=== PATIENT | female | born 1945 | race Caucasian/White ===

== ENCOUNTER 2017-08-27 17:22 | Inpatient (IN) | payer MEDICARE, OTHER ==
[2017-08-27 17:36] VITALS: BMI 21.9
[2017-08-27] MEDS ORDERED: Sodium Chloride 0.9% 1,000 ML IV ONE ×2 (17:56→19:10)
[2017-08-27 18:05] LABS: VENOUS BLOOD GAS BASE EXCESS 5.9 mmol/L (0.0-2.0); VENOUS BLOOD GAS PCO2 39 mmHg (40-60); VENOUS BLOOD PH 7.49 (7.32-7.43)
[2017-08-27 18:05] LABS: BASO # 0.1 K/uL (0.0-0.2); BASO % 0.6 % (0.0-2.0); EOS # 0.1 K/uL (0.0-0.7); EOS % 0.4 % (0.0-4.0); HEMATOCRIT 33.7 % (34.0-47.0); LYMPH % 9.7 % (20.0-40.0); MEAN CELL VOLUME 86.9 fL (81.0-99.0); MEAN CORPUSCULAR HEMOGLOBIN 28.8 pg (27.0-31.0); MEAN CORPUSCULAR HGB CONC 33.1 g/dL (33.0-37.0); MEAN PLATELET VOLUME 8.3 fL (7.2-11.7); MONO # 1.9 K/uL (0.0-0.8); MONO % 9.3 % (0.0-10.0); PLATELET COUNT 489 K/uL (130-400); RED CELL DISTRIBUTION WIDTH 12.5 % (11.5-14.5); WHITE BLOOD COUNT 20.5 K/uL (4.8-10.8)
[2017-08-27] MEDS ORDERED: Sodium Chloride 0.9% 1,000 ML ONE ×2 (18:07→19:33)
[2017-08-27 18:09] LABS: CHLORIDE 93 mmol/L (98-107)
[2017-08-27 18:10] LABS: POTASSIUM 3.8 mmol/L (3.6-5.2); SODIUM 128 mmol/L (132-148)
[2017-08-27 18:12] LABS: ALB/GLOB RATIO 1.1 (1.0-2.1); AST/SGOT 45 U/L (14-36); BLOOD UREA NITROGEN 8 mg/dL (7-17); CARBON DIOXIDE 25 mmol/L (22-30); GFR AFRICAN-AMERICAN > 60; TOTAL PROTEIN 6.8 g/dL (6.3-8.3)
[2017-08-27 18:13] LABS: ALKALINE PHOSPHATASE 95 U/L (38-126); ALT/SGPT 81 U/L (9-52); CALCIUM 8.8 mg/dl (8.6-10.4); GLUCOSE,RANDOM 165 mg/dL (65-105)
[2017-08-27 18:54] LABS: NEUTROPHIL 82 % (50-75); TOTAL CELLS COUNTED 100
--- NOTE | 2017-08-27 19:08 | RAD ---
PROCEDURE: CHEST RADIOGRAPH, 1 VIEW HISTORY: COUGH COMPARISON: None available. FINDINGS: LUNGS: Clear. PLEURA: No pneumothorax or pleural fluid seen. CARDIOVASCULAR: Normal. OSSEOUS STRUCTURES: Calcifications at the costochondral junctions of the right 5th and 6th ribs near the right lung base. VISUALIZED UPPER ABDOMEN: Normal. OTHER FINDINGS: None. IMPRESSION: No acute cardiopulmonary disease appreciated.
[2017-08-27 19:10] LABS: RBC URINE < 1 /hpf (0-3); TRANSITIONAL EPITHIAL < 1 /hpf (0-3); URINE BACTERIA FEW (<OCC); URINE BILIRUBIN NEGATIVE (NEGATIVE); URINE BLOOD NEGATIVE (NEGATIVE); URINE COLOR Straw (YELLOW); URINE GLUCOSE (UA) 1+ mg/dL (Normal); URINE KETONE NEGATIVE (NEGATIVE); URINE LEUKOCYTE ESTERASE NEG Leu/uL (Negative); URINE PROTEIN NEGATIVE (NEGATIVE); URINE UROBILINOGEN NORMAL mg/dL (0.2-1.0); WBC URINE 1 /hpf (0-5)
[2017-08-27] MEDS ORDERED: Moxifloxacin IV 400mg/250ml NS 400 MG/250 ML BAG IV ONE (19:12)
[2017-08-27] MEDS ORDERED: cefTRIAXone IV 1 gm in Dextros 50 ML IV ONE (19:18)
[2017-08-27] MEDS ORDERED: cefTRIAXone IV 1 gm in Dextros 50 ML IVPB ONE (19:25)
--- NOTE | 2017-08-27 19:27 | C.PDOC ---
History Of Present Illness 72 year old female is referred here by Dr. Acosta Massey, after he notices she looks lethergic, weakness, cough, and poor PO intake. Patient was diagnosed with URI and given azithromycin z pack with no improvement. Patient denies any headache, dizziness, nausea, vomit, or known sick contacts. Time Seen by Provider: 08/27/17 17:54 Chief Complaint (Nursing): Flu-like Symptoms History Per: Patient History/Exam Limitations: no limitations Onset/Duration Of Symptoms: Hrs Current Symptoms Are (Timing): Still Present Associated Symptoms: Cough, Myalgias, Nasal Congestion. denies: Fever, Chills, Sore Throat, Nausea, Vomiting, Diarrhea Recent travel outside of the [place]: No Additional History Per: Patient Past Medical History Reviewed: Historical Data, Nursing Documentation, Vital Signs Vital Signs: Last Vital Signs Temp 98.8 F 08/27/17 17:37 Pulse 131 H 08/27/17 17:37 Resp 16 08/27/17 17:37 BP 116/78 08/27/17 17:37 Pulse Ox 98 08/27/17 19:36 - Medical History PMH: HTN, Hyperlipidemia Surgical History: No Surg Hx Family History: States: Unknown Family Hx - Social History Hx Alcohol Use: No Hx Substance Use: No - Immunization History Hx Tetanus Toxoid Vaccination: No Hx Influenza Vaccination: Yes Hx Pneumococcal Vaccination: No Review Of Systems Constitutional: Negative for: Fever, Chills Eyes: Negative for: Vision Change ENT: Positive for: Nose Discharge Cardiovascular: Negative for: Chest Pain Respiratory: Positive for: Cough. Negative for: Shortness of Breath Gastrointestinal: Negative for: Nausea, Vomiting, Abdominal Pain Neurological: Positive for: Weakness. Negative for: Numbness Physical Exam - Physical Exam Appears: No Acute Distress, Other (Lethergic) Skin: Normal Color, Warm, Dry, Other (tenting skin) Head: Atraumatic, Normacephalic Nose: Normal, No Discharge Oral Mucosa: Moist Throat: Other (Oropharynx dry ) Neck: Normal ROM, Supple Chest: Symmetrical, No Tenderness Cardiovascular: Rhythm Regular, No Murmur Respiratory: Normal Breath Sounds, No Accessory Muscle Use, No Rales, No Rhonchi , No Wheezing Gastrointestinal/Abdominal: Soft, No Tenderness, No Guarding, No Rebound Extremity: Normal ROM, No Pedal Edema, No Deformity, No Swelling Neurological/Psych: Oriented x3, Normal Speech, Normal Cognition ED Course And Treatment - Laboratory Results Result Diagrams: 08/27/17 17:58 08/27/17 17:58 Lab Interpretation: Abnormal (ua neg.) ECG: Interpreted By Me ECG Rhythm: Sinus Tachycardia ECG Interpretation: Abnormal Rate From EC O2 Sat by Pulse Oximetry: 98 (On RA) Pulse Ox Interpretation: Normal - Radiology CXR: Interpreted by Me, Viewed By Me CXR Interpretation: Yes: No Acute Disease, Infiltrates (? LLL PNA) Nexus Criteria: Negative Progress Note: NS x 2 liters, Rocephin. Already on Azithro x 4 days and further azithro not indicated. Further, Avelox (for inst acquired PNA as pt has been in doctor's offices this week) is contraindicated due to warning of prolonged QT interval using Avelox and Azithromycin together. Medical Decision Making Medical Decision Making: Impression : 72 y/o female referred by Dr. Shane Plan: * EKG, Blood work, CXR, UA ordered * Avelox 5400 mg in 250 mL IV, IV fluids administered DM, dehydration, viral syndrome, ? underlying LLL PNA (faint on CXR) Disposition Doctor Will See Patient In The: Hospital Counseled Patient/Family Regarding: Studies Performed, Diagnosis - Disposition Disposition: HOSPITALIZED Disposition Time: 19:36 Condition: FAIR Forms: [facility] (Georgian) - Clinical Impression Clinical Impression: Dehydration, Upper respiratory infection - Scribe Statement The provider has reviewed the documentation as recorded by the Scribe Peter Irving All medical record entries made by the Scribe were at my direction and personally dictated by me. I have reviewed the chart and agree that the record accurately reflects my personal performance of the history, physical exam, medical decision making, and the department course for this patient. I have also personally directed, reviewed, and agree with the discharge instructions and disposition.
[2017-08-27] MEDS: (Novolog) Insulin Aspart, Recombinant 100 u/ml 10 ml vial SC SCH (22:09)
[2017-08-27] MEDS: Albuterol-Ipratrop 3 mg / 0.5 (3 ml) UD INH PRN (22:37)
[2017-08-27 23:26] VITALS: RESP 20
[2017-08-28] MEDS: (Novolog) Insulin Aspart, Recombinant 100 u/ml 10 ml vial SC SCH ×4 (07:45→21:34)
[2017-08-28] MEDS ORDERED: cefTRIAXone IV 1 gm in Dextros 50 ML IVPB SCH (10:00)
[2017-08-28] MEDS: Albuterol-Ipratrop 3 mg / 0.5 (3 ml) UD INH PRN (10:41)
[2017-08-28] MEDS: Vitamin B Complex/Vitamin C Tab PO SCH (10:46)
[2017-08-28] MEDS: Enoxaparin 40 mg Syringe SC SCH (10:47)
--- NOTE | 2017-08-28 15:34 | CP.PCM.PN ---
Subjective - Date & Time of Evaluation Date of Evaluation: 08/28/17 Time of Evaluation: 15:33 - Subjective Subjective: cough + Objective - Vital Signs/Intake and Output Vital Signs (last 24 hours): Temp Pulse Resp BP Pulse Ox 98.2 F 112 H 20 126/67 96 08/28/17 08:32 08/28/17 08:32 08/28/17 08:32 08/28/17 08:32 08/28/17 08:32 Intake and Output: 08/28/17 08/28/17 06:59 18:59 Intake Total 240 150 Balance 240 150 - Medications Medications: Current Medications Acetaminophen (Tylenol 325mg Tab) 650 mg PO Q6 PRN PRN Reason: Pain, moderate (4-7) Last Admin: 08/27/17 22:56 Dose: 650 mg Albuterol/Ipratropium (Duoneb 3 Mg/0.5 Mg (3 Ml) Ud) 3 ml INH RQ8 PRN PRN Reason: Shortness of Breath Last Admin: 08/28/17 10:41 Dose: 3 ml Enoxaparin Sodium (Lovenox) 40 mg SC DAILY [facility] Last Admin: 08/28/17 10:47 Dose: 40 mg Ceftriaxone Sodium 1 gm/ (Dextrose) 50 mls @ 100 mls/hr IVPB Q12H [facility] Last Admin: 08/28/17 07:12 Dose: 100 mls/hr Insulin Aspart (Novolog) 0 unit SC ACHS [facility] PRN Reason: Protocol Last Admin: 08/28/17 12:18 Dose: 2 unit Metformin HCl (Glucophage) 500 mg PO DAILY [facility] Last Admin: 08/28/17 10:46 Dose: 500 mg Pneumococcal Polyvalent Vaccine (Pneumovax 23 Vaccine) 0.5 ml IM .ONCE ONE Stop: 08/29/17 10:01 Rosuvastatin Calcium (Crestor) 5 mg PO HS [facility] Last Admin: 08/27/17 22:56 Dose: 5 mg Vitamin B Complex/Vitamin C (Berocca) 1 tab PO DAILY [facility] Last Admin: 08/28/17 10:46 Dose: 1 tab - Labs Labs: 08/27/17 17:58 08/27/17 17:58 - Constitutional Appears: Toxic, No Acute Distress - Eye Exam Eye Exam: Normal appearance - ENT Exam ENT Exam: Mucous Membranes Moist - Respiratory Exam Respiratory Exam: Clear to Ausculation Bilateral - Cardiovascular Exam Cardiovascular Exam: Tachycardia - GI/Abdominal Exam GI & Abdominal Exam: Soft - Extremities Exam Extremities Exam: absent: Pedal Edema - Neurological Exam Neurological Exam: Alert, Oriented x3 Assessment and Plan - Assessment and Plan (Free Text) Assessment: poss lt lower lobe pneumonia. will reche k labs.,pulmonary consult. diss with family
[2017-08-28] MEDS: Promethazine/Cod 6.25mg-10mg/5ml Syr UD PO PRN ×2 (16:20→21:30)
[2017-08-28 17:42] LABS: BASO % 0.3 % (0.0-2.0); EOS # 0.1 K/uL (0.0-0.7); EOS % 0.3 % (0.0-4.0); HEMATOCRIT 30.3 % (34.0-47.0); LYMPH # 1.8 K/uL (1.0-4.3); LYMPH % 9.8 % (20.0-40.0); MEAN CELL VOLUME 85.5 fL (81.0-99.0); MEAN CORPUSCULAR HEMOGLOBIN 28.7 pg (27.0-31.0); MEAN CORPUSCULAR HGB CONC 33.6 g/dL (33.0-37.0); MEAN PLATELET VOLUME 8.4 fL (7.2-11.7); MONO # 1.7 K/uL (0.0-0.8); MONO % 9.7 % (0.0-10.0); PLATELET COUNT 443 K/uL (130-400); RED CELL DISTRIBUTION WIDTH 12.6 % (11.5-14.5); WHITE BLOOD COUNT 17.9 K/uL (4.8-10.8)
[2017-08-28 17:52] LABS: CHLORIDE 95 mmol/L (98-107); POTASSIUM 3.9 mmol/L (3.6-5.2); SODIUM 126 mmol/L (132-148)
[2017-08-28 17:55] LABS: BLOOD UREA NITROGEN 6 mg/dL (7-17); CARBON DIOXIDE 22 mmol/L (22-30); GFR AFRICAN-AMERICAN > 60; GLUCOSE,RANDOM 205 mg/dL (65-105)
[2017-08-28 17:56] LABS: CALCIUM 7.8 mg/dl (8.6-10.4)
[2017-08-28 18:56] LABS: NEUTROPHIL 90 % (50-75); TOTAL CELLS COUNTED 100
[2017-08-28 18:59] LABS: LARGE PLATELETS PRESENT
--- NOTE | 2017-08-28 19:32 | CP.PCM.CON ---
History of Present Illness - History of Present Illness History of Present Illness: reason for consultation: cough 72 year old female With history of diabetes was referred by PMD, after he notices her looks lethergic, weakness, cough, and poor PO intake. Patient was diagnosed with URI and given azithromycin z pack with no improvement. Patient states she has been coughing for the past 2 weeks. Cough is mostly dry and both during the day and at night associated with runny nose, fevers chills and generalized body aches. Patient states cough is better now. Review of Systems - Review of Systems All systems: reviewed and no additional remarkable complaints except (cough, fever chills and generalized aches) Past Patient History - Past Medical History & Family History Past Medical History?: Yes - Past Social History Smoking Status: Never Smoked - CARDIAC Hx Hypertension: Yes - ENDOCRINE/METABOLIC Hx Diabetes Mellitus Type 2: Yes - MUSCULOSKELETAL/RHEUMATOLOGICAL Hx Falls: No - PSYCHIATRIC Hx Substance Use: No - SURGICAL HISTORY Hx Orthopedic Surgery: Yes - ANESTHESIA Hx Anesthesia: Yes Hx Anesthesia Reactions: No Meds Allergies/Adverse Reactions: Allergies Allergy/AdvReac Type Severity Reaction Status Date / Time No Known Allergies Allergy Verified 08/27/17 17:33 - Medications Medications: Current Medications Acetaminophen (Tylenol 325mg Tab) 650 mg PO Q6 PRN PRN Reason: Pain, moderate (4-7) Last Admin: 08/27/17 22:56 Dose: 650 mg Albuterol/Ipratropium (Duoneb 3 Mg/0.5 Mg (3 Ml) Ud) 3 ml INH RQ8 PRN PRN Reason: Shortness of Breath Last Admin: 08/28/17 10:41 Dose: 3 ml Enoxaparin Sodium (Lovenox) 40 mg SC DAILY [facility] Last Admin: 08/28/17 10:47 Dose: 40 mg Ceftriaxone Sodium 1 gm/ (Dextrose) 50 mls @ 100 mls/hr IVPB Q12H [facility] Last Admin: 08/28/17 18:21 Dose: 100 mls/hr Insulin Aspart (Novolog) 0 unit SC ACHS [facility] PRN Reason: Protocol Last Admin: 08/28/17 16:50 Dose: 2 unit Metformin HCl (Glucophage) 500 mg PO DAILY [facility] Last Admin: 08/28/17 10:46 Dose: 500 mg Pneumococcal Polyvalent Vaccine (Pneumovax 23 Vaccine) 0.5 ml IM .ONCE ONE Stop: 08/29/17 10:01 Promethazine HCl/Codeine (Phenergan/Codeine Oral Syrup) 5 ml PO Q4 PRN PRN Reason: Cough Stop: 08/31/17 15:40 Last Admin: 08/28/17 16:20 Dose: 5 ml Rosuvastatin Calcium (Crestor) 5 mg PO HS [facility] Last Admin: 08/27/17 22:56 Dose: 5 mg Fluticasone/Salmeterol (Advair Diskus 250/50) 1 puff INH RQ12 [facility] Vitamin B Complex/Vitamin C (Berocca) 1 tab PO DAILY [facility] Last Admin: 08/28/17 10:46 Dose: 1 tab Physical Exam - Head Exam Head Exam: ATRAUMATIC, NORMOCEPHALIC - Eye Exam Eye Exam: Normal appearance - ENT Exam ENT Exam: Mucous Membranes Moist - Neck Exam Neck exam: Positive for: Normal Inspection - Respiratory Exam Respiratory Exam: Rales - Cardiovascular Exam Cardiovascular Exam: REGULAR RHYTHM - GI/Abdominal Exam GI & Abdominal Exam: Normal Bowel Sounds - Extremities Exam Extremities exam: Positive for: normal inspection - Neurological Exam Neurological exam: Alert, Oriented x3 Results - Vital Signs Recent Vital Signs: Last Vital Signs Temp 99.1 F 08/28/17 15:00 Pulse 115 H 08/28/17 15:00 Resp 20 08/28/17 15:00 BP 126/70 08/28/17 15:00 Pulse Ox 95 08/28/17 15:00 - Labs Result Diagrams: 08/28/17 17:30 08/28/17 17:30 Labs: Laboratory Results - last 24 hr 08/27/17 08/27/17 08/28/17 19:32 21:58 07:17 WBC RBC Hgb Hct MCV MCH MCHC RDW Plt Count MPV Neut % (Auto) Lymph % (Auto) [place] % (Auto) Eos % (Auto) Baso % (Auto) Neut # Lymph # [place] # Eos # Baso # Neutrophils % (Manual) Lymphocytes % (Manual) Monocytes % (Manual) Platelet Estimate Large Platelets Sodium Potassium Chloride Carbon Dioxide Anion Gap BUN Creatinine Est GFR ( Amer) Est GFR (Non-Af Amer) POC Glucose (mg/dL) 162 H 203 H Random Glucose Calcium Influenza Typ A,B (EIA) Negative for flu a/b 08/28/17 08/28/1708/28/17 11:19 17:07 17:30 WBC 17.9 H RBC 3.54 L Hgb 10.2 L Hct 30.3 L MCV 85.5 MCH 28.7 MCHC 33.6 RDW 12.6 Plt Count 443 H MPV 8.4 Neut % (Auto) 79.9 H Lymph % (Auto) 9.8 L [place] % (Auto) 9.7 Eos % (Auto) 0.3 Baso % (Auto) 0.3 Neut # 14.3 H Lymph # 1.8 [place] # 1.7 H Eos # 0.1 Baso # 0.0 Neutrophils % (Manual) 90 H Lymphocytes % (Manual) 7 L Monocytes % (Manual) 3 Platelet Estimate Slightly increased H Large Platelets Present Sodium Potassium Chloride Carbon Dioxide Anion Gap BUN Creatinine Est GFR ( Amer) Est GFR (Non-Af Amer) POC Glucose (mg/dL) 238 H 239 H Random Glucose Calcium Influenza Typ A,B (EIA) 08/28/17 17:30 WBC RBC Hgb Hct MCV MCH MCHC RDW Plt Count MPV Neut % (Auto) Lymph % (Auto) [place] % (Auto) Eos % (Auto) Baso % (Auto) Neut # Lymph # [place] # Eos # Baso # Neutrophils % (Manual) Lymphocytes % (Manual) Monocytes % (Manual) Platelet Estimate Large Platelets Sodium 126 L Potassium 3.9 Chloride 95 L Carbon Dioxide 22 Anion Gap 13 BUN 6 L Creatinine 0.4 L Est GFR ( Amer) > 60 Est GFR (Non-Af Amer) > 60 POC Glucose (mg/dL) Random Glucose 205 H Calcium 7.8 L Influenza Typ A,B (EIA) Assessment & Plan (1) Cough Status: Acute Comment: cough for the past 2 weeks. elevated white count. On examination crackles in the bases. Chest x-ray showed no infiltrate. Clinical picture consistent with pneumonia. Continue antibiotics. Followup culture and sensit
[2017-08-29] MEDS: Albuterol-Ipratrop 3 mg / 0.5 (3 ml) UD INH PRN (07:45)
[2017-08-29] MEDS: Fluticasone-Salmeterol 250-50mcg Diskus INH SCH ×2 (08:00→19:32)
[2017-08-29] MEDS ORDERED: Pneumococcal 23-Valent Vaccine IM ONE (10:00)
[2017-08-29] MEDS: Enoxaparin 40 mg Syringe SC SCH (10:08)
[2017-08-29] MEDS: Vitamin B Complex/Vitamin C Tab PO SCH (10:54)
[2017-08-29] MEDS: (Novolog) Insulin Aspart, Recombinant 100 u/ml 10 ml vial SC SCH ×4 (10:54→21:49)
[2017-08-29] MEDS ORDERED: Sodium Chloride 0.9% 1,000 ML IV SCH (11:30)
--- NOTE | 2017-08-29 14:27 | CP.PCM.CON ---
History of Present Illness - History of Present Illness History of Present Illness: pt is seen and examined, full consult is dictated #[id number] 1. hyponatremia, most likley sec to hypotonic hypovolemic hyponatremia check urine lytes, osm s. osm, uric acid, tsh, cortisol c/w ivf ns at 60-70 ml/hr Past Patient History - Past Medical History & Family History Past Medical History?: Yes - Past Social History Smoking Status: Never Smoked - CARDIAC Hx Hypertension: Yes - ENDOCRINE/METABOLIC Hx Diabetes Mellitus Type 2: Yes - MUSCULOSKELETAL/RHEUMATOLOGICAL Hx Falls: No - PSYCHIATRIC Hx Substance Use: No - SURGICAL HISTORY Hx Orthopedic Surgery: Yes - ANESTHESIA Hx Anesthesia: Yes Hx Anesthesia Reactions: No Meds Allergies/Adverse Reactions: Allergies Allergy/AdvReac Type Severity Reaction Status Date / Time No Known Allergies Allergy Verified 08/27/17 17:33 - Medications Medications: Current Medications Acetaminophen (Tylenol 325mg Tab) 650 mg PO Q6 PRN PRN Reason: Pain, moderate (4-7) Last Admin: 08/29/17 00:05 Dose: 650 mg Albuterol/Ipratropium (Duoneb 3 Mg/0.5 Mg (3 Ml) Ud) 3 ml INH RQ8 PRN PRN Reason: Shortness of Breath Last Admin: 08/29/17 07:45 Dose: 3 ml Enoxaparin Sodium (Lovenox) 40 mg SC DAILY [facility] Last Admin: 08/29/17 10:08 Dose: 40 mg Ceftriaxone Sodium 1 gm/ (Dextrose) 100 mls @ 100 mls/hr IVPB Q12H [facility] Sodium Chloride (Sodium Chloride 0.9%) 1,000 mls @ 50 mls/hr IV .Q20H [facility] Last Admin: 08/29/17 12:00 Dose: 50 mls/hr Insulin Aspart (Novolog) 0 unit SC ACHS [facility] PRN Reason: Protocol Last Admin: 08/29/17 12:00 Dose: 2 unit Metformin HCl (Glucophage) 500 mg PO DAILY [facility] Last Admin: 08/29/17 10:53 Dose: 500 mg Promethazine HCl/Codeine (Phenergan/Codeine Oral Syrup) 5 ml PO Q4 PRN PRN Reason: Cough Stop: 08/31/17 15:40 Last Admin: 08/28/17 21:30 Dose: 5 ml Rosuvastatin Calcium (Crestor) 5 mg PO HS [facility] Last Admin: 08/28/17 21:30 Dose: 5 mg Fluticasone/Salmeterol (Advair Diskus 250/50) 1 puff INH RQ12 [facility] Last Admin: 08/29/17 08:00 Dose: 1 puff Vitamin B Complex/Vitamin C (Berocca) 1 tab PO DAILY [facility] Last Admin: 08/29/17 10:54 Dose: 1 tab Results - Vital Signs Recent Vital Signs: Last Vital Signs Temp 99.1 F 08/29/17 02:06 Pulse 101 H 08/29/17 00:00 Resp 20 08/29/17 00:00 BP 114/63 08/29/17 00:00 Pulse Ox 96 08/29/17 00:00 - Labs Result Diagrams: 08/28/17 17:30 08/28/17 17:30 Labs: Laboratory Results - last 24 hr 08/28/17 08/28/17 08/28/17 17:07 17:30 17:30 WBC 17.9 H RBC 3.54 L Hgb 10.2 L Hct 30.3 L MCV 85.5 MCH 28.7 MCHC 33.6 RDW 12.6 Plt Count 443 H MPV 8.4 Neut % (Auto) 79.9 H Lymph % (Auto) 9.8 L [place] % (Auto) 9.7 Eos % (Auto) 0.3 Baso % (Auto) 0.3 Neut # 14.3 H Lymph # 1.8 [place] # 1.7 H Eos # 0.1 Baso # 0.0 Neutrophils % (Manual) 90 H Lymphocytes % (Manual) 7 L Monocytes % (Manual) 3 Platelet Estimate Slightly increased H Large Platelets Present Sodium 126 L Potassium 3.9 Chloride 95 L Carbon Dioxide 22 Anion Gap 13 BUN 6 L Creatinine 0.4 L Est GFR ( Amer) > 60 Est GFR (Non-Af Amer) > 60 POC Glucose (mg/dL) 239 H Random Glucose 205 H Calcium 7.8 L 08/28/17 08/29/17 08/29/17 21:34 07:30 11:16 WBC RBC Hgb Hct MCV MCH MCHC RDW Plt Count MPV Neut % (Auto) Lymph % (Auto) [place] % (Auto) Eos % (Auto) Baso % (Auto) Neut # Lymph # [place] # Eos # Baso # Neutrophils % (Manual) Lymphocytes % (Manual) Monocytes % (Manual) Platelet Estimate Large Platelets Sodium Potassium Chloride Carbon Dioxide Anion Gap BUN Creatinine Est GFR ( Amer) Est GFR (Non-Af Amer) POC Glucose (mg/dL) 223 H 181 H 244 H Random Glucose Calcium
--- NOTE | 2017-08-29 14:30 | CP.PCM.CON ---
History of Present Illness - History of Present Illness History of Present Illness: 72 yo female is admitted with fever cough and congestion Has hx of DM II and was recently treated with ZMax w/o relief IV rx started empirically and CXR obtained failed to show infiltrates Pt had fevr leukocytosis on admission Review of Systems - Constitutional Constitutional: As Per HPI - EENT Eyes: absent: As Per HPI, Blind Spots, Blurred Vision, Change in Vision, Decreased Night Vision, Diplopia, Discharge, Dry Eye, Exophthalmos, Floaters, Irritation, Itchy Eyes, Loss of Peripheral Vision, Pain, Photophobia, Requires Corrective Lenses, Sees Flashes, Spots in Vision, Tunnel Vision, Other Visual Disturbances, Loss of Vision, Other Ears: absent: As Per HPI, Decreased Hearing, Ear Discharge, Ear Pain, Tinnitus, Abnormal Hearing, Disequilibrium, Dizziness, Other Nose/Mouth/Throat: absent: As Per HPI, Epistaxis, Nasal Congestion, Nasal Discharge, Nasal Obstruction, Nasal Trauma, Nose Pain, Post Nasal Drip, Sinus Pain, Sinus Pressure, Bleeding Gums, Change in Voice, Dental Pain, Dry Mouth, Dysphagia, Halitosis, Hoarsness, Lip Swelling, Mouth Lesions, Mouth Pain, Odynophagia, Sore Throat, Throat Swelling, Tongue Swelling, Facial Pain, Neck Pain, Neck Mass, Other - Breasts Breasts: absent: As Per HPI, Change in Shape, Mass, Pain, Nipple Discharge, Nipple Inversion, Skin Changes, Swelling, Other - Cardiovascular Cardiovascular: As Per HPI - Respiratory Respiratory: As Per HPI, Cough, Dyspnea. absent: Hemoptysis - Gastrointestinal Gastrointestinal: absent: As Per HPI, Abdominal Pain, Belching, Bloating, Change in Bowel Habits, Change in Stool Character, Coffee Ground Emesis, Constipation, Cramping, Diarrhea, Dyspepsia, Dysphagia, Early Satiety, Excessive Flatus, Fecal Incontinence, Heartburn, Hematemesis, Hematochezia, Loose Stools, Melena, Nausea, Odynophagia, Temesmus, Vomiting, Other - Genitourinary Genitourinary: absent: As Per HPI, Change in Urinary Stream, Difficulty Urinating, Dysuria, Flank Pain, Hematuria, Pyuria, Nocturia, Urinary Incontinence, Urinary Frequency, Urinary Hesitance, Urinary Urgency, Voiding Freq/Small Amts, Freq UTI, Hx Renal/Bladder Calculi, Hx /Renal Surgery, Bladder Distension, Other - Reproductive: Female Reproductive:Female: absent: As Per HPI, Amenorrhea, Amenorrhea/ Control, Currently Menstual, Cycle <21 Days, Cycle >35 Days, Cycle Variable, Menses 1-7 Days, Menses >/= 8 Days, Menses Variable, Cycle > 4 Weeks Between, No Menses for 6 Months, Heavy Menses, Light Menses, Normal Menses, Spotting Between Cycles , S/P Hysterectomy, Menopausal, Post Menopausal, Premenarche, Abnormal Vaginal Bleeding, Dysmenorrhea, Dyspareunia, Genital Lesions, Genital Pruritis, Pelvic Pain, Prolapse Symptoms, Sexual Dysfunction, Vaginal Discharge, Vaginal Dryness , Vaginal Odor, Vaginal Pruritis, Other - Menstruation Menstruation: absent: As Per HPI, Amenorrhea, Amenorrhea/ Control, Currently Menstual, Cycle <21 Days, Cycle >35 Days, Cycle Variable, Menses 1-7 Days, Menses >/= 8 Days, Menses Variable, Cycle > 4 Weeks Between, No Menses for 6 Months, Heavy Menses, Light Menses, Normal Menses, Spotting Between Cycles , S/P Hysterectomy, Menopausal, Post Menopausal, Premenarche, Abnormal Vaginal Bleeding, Dysmenorrhea, Other - Musculoskeletal Musculoskeletal: As Per HPI. absent: Abnormal Gait, Arthralgias, Atrophy, Back Pain, Deformity, Joint Swelling, Limited Range of Motion, Loss of Height, Muscle Cramps, Muscle Weakness, Myalgias, Neck Pain, Numbness, Radiating Pain into Limb, Stiffness, Tingling, Other - Integumentary Integumentary: absent: As Per HPI, Acne, Alopecia, Bleeding Lesions, Change in Hair, Change in Nails, Change in Pigmentation, Changing Lesions, Dry Skin, Erythema, Furuncle, Hirsutism, Lesions, New Lesions, Non-Healing Lesions, Photosensitivity, Pruritus, Rash, Skin Pain, Skin Ulcer, Sores, Striae, Swelling , Unusual Bruising, Wounds, Jaundice, Other - Neurological Neurological: absent: As Per HPI, Abnormal Gait, Abnormal Hearing, Abnormal Movements, Abnormal Speech, Behavioral Changes, Burning Sensations, Confusion, Convulsions, Disequilibrium, Dizziness, Numbness, Focal Weakness, Frequent Falls , Headaches, Lack of Coordination, Loss of Vision, Memory Loss, Paresthesias, Radicular Pain, Restless Legs, Sensory Deficit, Syncope, Tingling, Tremor, Vertigo, Weakness, Other Visual Disturbances, Other - Psychiatric Psychiatric: absent: As Per HPI, Abnormal Sleep Pattern, Anhedonia, Anxiety, Auditory Hallucinations, Behavioral Changes, Change in Appetite, Change in Libido, Confusion, Depression, Difficulty Concentrating, Hallucinations, Homicidal Ideation, Hopelessness, Irritability, Memory Loss, Mood Swings, Panic Attacks, Paranoia, Suicidal Ideation, Visual Hallucinations, Tactile Hallucinations, Other - Endocrine Endocrine: As Per HPI - Hematologic/Lymphatic Hematologic: absent: As Per HPI, Easy Bleeding, Easy Bruising, Lymphadenopathy, Other Past Patient History - Past Medical History & Family History Past Medical History?: Yes - Past Social History Smoking Status: Never Smoked - CARDIAC Hx Hypertension: Yes - ENDOCRINE/METABOLIC Hx Diabetes Mellitus Type 2: Yes - MUSCULOSKELETAL/RHEUMATOLOGICAL Hx Falls: No - PSYCHIATRIC Hx Substance Use: No - SURGICAL HISTORY Hx Orthopedic Surgery: Yes - ANESTHESIA Hx Anesthesia: Yes Hx Anesthesia Reactions: No Meds Allergies/Adverse Reactions: Allergies Allergy/AdvReac Type Severity Reaction Status Date / Time No Known Allergies Allergy Verified 08/27/17 17:33 - Medications Medications: Current Medications Acetaminophen (Tylenol 325mg Tab) 650 mg PO Q6 PRN PRN Reason: Pain, moderate (4-7) Last Admin: 08/29/17 00:05 Dose: 650 mg Albuterol/Ipratropium (Duoneb 3 Mg/0.5 Mg (3 Ml) Ud) 3 ml INH RQ8 PRN PRN Reason: Shortness of Breath Last Admin: 08/29/17 07:45 Dose: 3 ml Enoxaparin Sodium (Lovenox) 40 mg SC DAILY [facility] Last Admin: 08/29/17 10:08 Dose: 40 mg Ceftriaxone Sodium 1 gm/ (Dextrose) 100 mls @ 100 mls/hr IVPB Q12H [facility] Sodium Chloride (Sodium Chloride 0.9%) 1,000 mls @ 50 mls/hr IV .Q20H [facility] Last Admin: 08/29/17 12:00 Dose: 50 mls/hr Insulin Aspart (Novolog) 0 unit SC ACHS [facility] PRN Reason: Protocol Last Admin: 08/29/17 12:00 Dose: 2 unit Metformin HCl (Glucophage) 500 mg PO DAILY [facility] Last Admin: 08/29/17 10:53 Dose: 500 mg Promethazine HCl/Codeine (Phenergan/Codeine Oral Syrup) 5 ml PO Q4 PRN PRN Reason: Cough Stop: 08/31/17 15:40 Last Admin: 08/28/17 21:30 Dose: 5 ml Rosuvastatin Calcium (Crestor) 5 mg PO HS [facility] Last Admin: 08/28/17 21:30 Dose: 5 mg Fluticasone/Salmeterol (Advair Diskus 250/50) 1 puff INH RQ12 [facility] Last Admin: 08/29/17 08:00 Dose: 1 puff Vitamin B Complex/Vitamin C (Berocca) 1 tab PO DAILY [facility] Last Admin: 08/29/17 10:54 Dose: 1 tab Physical Exam - Constitutional Appears: Toxic, Cachectic, Chronically Ill - Head Exam Head Exam: ATRAUMATIC, NORMAL INSPECTION, NORMOCEPHALIC - Eye Exam Eye Exam: PERRL. absent: Scleral icterus - ENT Exam ENT Exam: Mucous Membranes Dry, Normal External Ear Exam, Normal Oropharynx - Neck Exam Neck exam: Negative for: Lymphadenopathy - Respiratory Exam Respiratory Exam: Decreased Breath Sounds, Prolonged Expiratory Phase, Rhonchi - Cardiovascular Exam Cardiovascular Exam: REGULAR RHYTHM, +S1, +S2 - GI/Abdominal Exam GI & Abdominal Exam: Diminished Bowel Sounds, Distended, Soft. absent: Guarding , Rigid, Tenderness - Rectal Exam Rectal Exam: Deferred - Exam Exam: NORMAL INSPECTION - Extremities Exam Extremities exam: Positive for: pedal pulses present. Negative for: calf tenderness, pedal edema, tenderness - Back Exam Back exam: absent: CVA tenderness (L), CVA tenderness (R), paraspinal tenderness - Neurological Exam Neurological exam: Alert, CN II-XII Intact, Oriented x3, Reflexes Normal - Psychiatric Exam Psychiatric exam: Depressed - Skin Skin Exam: Dry Results - Vital Signs Recent Vital Signs: Last Vital Signs Temp 99.1 F 08/29/17 02:06 Pulse 101 H 08/29/17 00:00 Resp 20 08/29/17 00:00 BP 114/63 08/29/17 00:00 Pulse Ox 96 08/29/17 00:00 - Labs Result Diagrams: 08/28/17 17:30 08/28/17 17:30 Labs: Laboratory Results - last 24 hr 08/28/17 08/28/17 08/28/17 17:07 17:30 17:30 WBC 17.9 H RBC 3.54 L Hgb 10.2 L Hct 30.3 L MCV 85.5 MCH 28.7 MCHC 33.6 RDW 12.6 Plt Count 443 H MPV 8.4 Neut % (Auto) 79.9 H Lymph % (Auto) 9.8 L Nye % (Auto) 9.7 Eos % (Auto) 0.3 Baso % (Auto) 0.3 Neut # 14.3 H Lymph # 1.8 Nye # 1.7 H Eos # 0.1 Baso # 0.0 Neutrophils % (Manual) 90 H Lymphocytes % (Manual) 7 L Monocytes % (Manual) 3 Platelet Estimate Slightly increased H Large Platelets Present Sodium 126 L Potassium 3.9 Chloride 95 L Carbon Dioxide 22 Anion Gap 13 BUN 6 L Creatinine 0.4 L Est GFR ( Amer) > 60 Est GFR (Non-Af Amer) > 60 POC Glucose (mg/dL) 239 H Random Glucose 205 H Calcium 7.8 L 08/28/17 08/29/17 08/29/17 21:34 07:30 11:16 WBC RBC Hgb Hct MCV MCH MCHC RDW Plt Count MPV Neut % (Auto) Lymph % (Auto) Nye % (Auto) Eos % (Auto) Baso % (Auto) Neut # Lymph # Nye # Eos # Baso # Neutrophils % (Manual) Lymphocytes % (Manual) Monocytes % (Manual) Platelet Estimate Large Platelets Sodium Potassium Chloride Carbon Dioxide Anion Gap BUN Creatinine Est GFR ( Amer) Est GFR (Non-Af Amer) POC Glucose (mg/dL) 223 H 181 H 244 H Random Glucose Calcium Assessment & Plan (1) Cough Status: Acute (2) Dehydration Status: Acute (3) Upper respiratory infection Status: Acute - Assessment and Plan (Free Text) Assessment: cont rx for CAP add atypical coverage Pulm follow up Dr Michaud consider CT Chest
--- NOTE | 2017-08-29 14:56 | RAD ---
HISTORY: pneumonia COMPARISON: Chest x-ray performed 08/27/17 TECHNIQUE: Chest PA and lateral FINDINGS: LUNGS: Mild biapical pleural thickening. No focal consolidation. Please note that chest x-ray has limited sensitivity for the detection of pulmonary masses. PLEURA: No significant pleural effusion identified. No definite pneumothorax . CARDIOVASCULAR: Heart size appears within normal limits. Dense atherosclerotic calcifications of the aorta. OSSEOUS STRUCTURES: Osseous demineralization. Degenerative changes. VISUALIZED UPPER ABDOMEN: Unremarkable. OTHER FINDINGS: None. IMPRESSION: Mild biapical pleural thickening. Dense atherosclerotic calcifications of the aortic knob.
[2017-08-29] MEDS: Sodium Chloride 0.9% 1,000 ML IV SCH (15:55)
[2017-08-29] MEDS: Promethazine/Cod 6.25mg-10mg/5ml Syr UD PO PRN (18:37)
[2017-08-29] MEDS: Azithromycin 500 MG in Sodium Chloride 0.9% 250 ML IVPB SCH (20:25)
[2017-08-30] MEDS: Promethazine/Cod 6.25mg-10mg/5ml Syr UD PO PRN ×3 (05:53→18:21)
[2017-08-30] MEDS: Sodium Chloride 0.9% 1,000 ML IV SCH ×3 (05:54→21:40)
[2017-08-30 06:33] LABS: BASO # 0.1 K/uL (0.0-0.2); BASO % 0.3 % (0.0-2.0); EOS # 0.1 K/uL (0.0-0.7); EOS % 0.6 % (0.0-4.0); HEMATOCRIT 29.4 % (34.0-47.0); LYMPH # 1.8 K/uL (1.0-4.3); LYMPH % 9.3 % (20.0-40.0); MEAN CORPUSCULAR HEMOGLOBIN 28.8 pg (27.0-31.0); MEAN CORPUSCULAR HGB CONC 33.5 g/dL (33.0-37.0); MONO # 1.8 K/uL (0.0-0.8); MONO % 9.4 % (0.0-10.0); PLATELET COUNT 440 K/uL (130-400); RED CELL DISTRIBUTION WIDTH 12.7 % (11.5-14.5); WHITE BLOOD COUNT 19.1 K/uL (4.8-10.8)
[2017-08-30 06:45] LABS: ALKALINE PHOSPHATASE 101 U/L (38-126); ALT/SGPT 83 U/L (9-52); AST/SGOT 53 U/L (14-36); BILIRUBIN,TOTAL 0.5 mg/dL (0.2-1.3); BLOOD UREA NITROGEN 5 mg/dL (7-17); CALCIUM 8.3 mg/dl (8.6-10.4); CARBON DIOXIDE 26 mmol/L (22-30); CHLORIDE 96 mmol/L (98-107); GFR AFRICAN-AMERICAN > 60; GLUCOSE,RANDOM 214 mg/dL (65-105); POTASSIUM 3.7 mmol/L (3.6-5.2); SODIUM 134 mmol/L (132-148); TOTAL PROTEIN 6.3 g/dL (6.3-8.3); URIC ACID 1.3 mg/dL (2.2-7.5)
[2017-08-30 06:50] LABS: ALB/GLOB RATIO 0.8 (1.0-2.1)
--- NOTE | 2017-08-30 07:11 | CON ---
RENAL CONSULTATION DATE: LOCATION: The patient is located in room 357, bed A. REQUESTED BY: Bryson Shane MD REASON FOR RENAL CONSULTATION: Hyponatremia, muscle pain for further evaluation. HISTORY OF PRESENT ILLNESS: Mrs. Darling is a 72-year-old elderly female with a past medical history significant for diabetes for about 2 to 3 years, hyperlipemia, who was admitted with a chief complaint of dry cough and sore throat for about two weeks. The patient was seen by PMD and given azithromycin without any significant improvement. The patient was admitted with persistent cough and severe muscle pains in both thigh regions and difficult to ambulate and decreased p.o. intake for the last 1 to 2 weeks. Also complaints of fever 106 prior to the hospital admission. Renal consult was requested for evaluation of the hyponatremia and muscle pains. The patient denies any chest pain, palpitation. Denies any nausea, vomiting. Denies any abdominal pain. No dysuria or frequency. No skin rash. No bleeding per rectum. No edema of the legs. PAST MEDICAL HISTORY: Significant for type 2 diabetes and hyperlipidemia. PAST SURGICAL HISTORY: Foot surgery more than two years ago. ALLERGIES: NO KNOWN DRUG ALLERGIES. SOCIAL HISTORY: No smoking, no alcohol, no drugs. PERSONAL HISTORY: She is and she has six children, lives with her family. The patient received flu vaccine three weeks ago, not sure about pneumococcal vaccine. REVIEW OF SYSTEMS: Significant for decreased p.o. intake for two weeks and feeling weak and dizzy and difficult to ambulate and muscle pains are diffuse. PHYSICAL EXAMINATION: VITAL SIGNS: As follows, blood pressure 136/72, pulse 100, respirations 20, temperature 98.6 and saturation 98%. Height is 5 feet and weight is 112 pounds. GENERAL: Mrs. Darling is a 72-year-old elderly female, thin built, not in distress. HEENT: Pupils normal and reactive to light and accommodation. Conjunctivae pink. Sclerae anicteric. Tongue is dry. Trachea is midline. LUNGS: Symmetrical on both side. Bilateral breath sounds present. Clear on auscultation. CARDIOVASCULAR: [place] at the fifth intercostal space, midclavicular line. S1 and S2 audible. No murmur or gallop. ABDOMEN: Normal in appearance, soft, tympanic. No guarding. No rigidity. No hepatosplenomegaly. CENTRAL NERVOUS SYSTEM: The patient is alert, awake, and oriented x3. Nonfocal on examination. Cranial nerves II through XII grossly intact. Sensory and motor system is within limits. EXTREMITIES: No cyanosis, no clubbing, no edema or tenderness on both thigh region, muscle tenderness present. CURRENT MEDICATIONS: Include as follows; Advair 1 puff q. 12 hours, azithromycin 500 mg q. 24 hours, Berocca one tablet daily, Rocephin 1 g q. 12 hours, DuoNeb inhaler, metformin 500 mg p.o. daily, Lovenox 40 mg subcu daily, Phenergan with codeine 5 mL q. 4 hours p.r.n., and IV fluids normal saline at 100 mL per hour and Fiorinal. LABORATORY DATA: Her Accu-Cheks 181, 244, 191, and 322 and CPK level is less than 20. Her white count as of 08/27/2017, WBC 20.5, hemoglobin 11.2, hematocrit is 33.7 and platelets 489. VBG; pH of 7.49, pCO2 of 39, pO2 of 22, bicarb 28, saturation 40%. Chem-7; sodium 128, potassium 3.8, chloride 93, CO2 of 25, BUN 8, creatinine 0.5, glucose 165, and calcium 8.8, total bili 1.0, AST 45, ALT 81, alkaline phosphatase 95, troponin 0.012, total protein 6.8, and albumin 3.5. Urinalysis, straw-colored, clear, pH 8, specific gravity of 1.003, and protein negative, glucose negative, ketones negative, blood negative, nitrites negative, bilirubin negative, leukocyte esterase is negative, wbc 1, rbc less than 1, bacteria is few. Influenza A and B antibody is negative. As of 08/28/2017, WBC 17.9, hemoglobin , hematocrit is 30.3, platelets 443, neutrophils 90, lymph 7, monos 3. Sodium 126, potassium 3.9,chloride 95, CO2 of 22, BUN 6, creatinine 0.4, glucose 239, and calcium is 7.8. Chest x-ray as of 08/27/2017, no acute cardiopulmonary disease appreciated. As of 08/28/2017, mild biapical pleural thickening dense, atherosclerotic calcification of the aortic knob. ASSESSMENT: In summary, Mrs. Darling is a 72-year-old elderly female with a history of type 2 diabetes, hyperlipidemia, who was admitted with chief complaints of fever 106 prior to the admission and severe body aches and dry cough and decreased p.o. intake for the last one to two weeks with low serum sodium. 1. Hyponatremia, most likely secondary to hypotonic hypovolemic hyponatremia, secondary to intravascular volume depletion. 2. Rule out upper respiratory tract infection, most likely viral etiology. Cannot rule out bacterial infection, less likely. PLAN: Check blood culture and consider sputum culture if possible and continue IV antibiotics Zithromax and Rocephin as per PMD and also continue IV fluids normal saline at 100 mL per hour. Repeat BMP in a.m. and analgesics p.r.n. for muscle pain and we will hold atorvastatin at this time and we will follow with you. Thank you for allowing me to participate in our patient's care. We will also check urine electrolytes, serum osmolality. We will check uric acid and serum cortisol level and TSH. Doubt syndrome of inappropriate antidiuretic hormone secretion. We will follow with you. Thank you for allowing me to participate in your patient's care. Samantha Alfaro MD
[2017-08-30 07:15] LABS: THYROID STIMULATING HORMONE 0.86 mIU/L (0.46-4.68)
[2017-08-30] MEDS: (Novolog) Insulin Aspart, Recombinant 100 u/ml 10 ml vial SC SCH ×4 (07:30→22:06)
[2017-08-30 08:23] LABS: EOSINOPHIL 1 % (0-4); NEUTROPHIL 79 % (50-75); TOTAL CELLS COUNTED 100
[2017-08-30 08:32] LABS: LEGIONELLA AG URINE NEGATIVE (NEGATIVE)
--- NOTE | 2017-08-30 09:49 | HP ---
HISTORY OF PRESENT ILLNESS: This is a 72-year-old female who was brought in with history of fever, chills, cough going on for the past few days. About two weeks ago, she had a flu shot. A week ago, she developed cough, was given some antibiotic without improvement. She got worse, came to the office, where she was found to be extremely dizzy and acutely sick, was referred to the emergency room and was admitted. She has temperature of 100.5. White count was 21,000. She has a history of hypertension and diabetes. MEDICATIONS AT HOME: Include Lipitor 10 mg one a day, metformin 500 mg twice a day, and Januvia 50 mg p.o. once a day. She is on 2 g sodium low-fat, low-cholesterol diet. REVIEW OF SYSTEMS: CONSTITUTIONAL: Generalized weakness is noted, extreme fatigue, fever for the past two days. Headaches are noted. EYES: No blurred vision. EARS: Normal. NECK: Supple. RESPIRATORY: Productive cough. No hemoptysis. CARDIAC: Denies any chest pain. No orthopnea, PND or leg edema. ABDOMEN: Negative for abdominal pain. GENITOURINARY: Negative for dysuria. Frequency is noted. MUSCULOSKELETAL: Severe leg pains are noted. NEUROLOGIC: No TIA's, no CVA's and no depression. ALLERGIES: DENIED. FAMILY HISTORY: Negative for premature coronary artery disease. PERSONAL HISTORY: Does not smoke. Does not drink. PHYSICAL EXAMINATION GENERAL: Shows elderly [place] female who appears acutely sick. VITAL SIGNS: She is 5 feet and weighs 106 pounds. Blood pressure is 130/70, heart rate of 120, respiratory rate of 20, and temperature of 100.6. HEENT: Head is normocephalic. Eyes, no pallor, no icterus. NECK: Supple. No lymphadenopathy. LUNGS: Show decreased air entry at the bases. HEART: PMI is not localized. S1 and S2, is tachycardic. No definite gallops or murmurs. ABDOMEN: Soft and nontender. EXTREMITIES: No cyanosis, clubbing, or edema. Distal pulses are intact. NEUROLOGIC: No focal sign. LABORATORY DATA: White count is elevated as mentioned. Chemistries are unremarkable. EKG is sinus tachycardia. IMAGING: Chest x-ray is not available. ASSESSMENT: A 72-year-old female with a history of possible pneumonitis, probably sepsis. PLAN: To admit, IV fluids, sodium was 128. ID consultation. Care of plan was explained to the patient's family, who is at the bedside. Bryson Shane MD
[2017-08-30 10:04] LABS: PROCALCITONIN SERUM 0.17 NG/ML (0.19-0.49)
[2017-08-30] MEDS: Fluticasone-Salmeterol 250-50mcg Diskus INH SCH (10:40)
[2017-08-30] MEDS: Vitamin B Complex/Vitamin C Tab PO SCH (11:44)
[2017-08-30] MEDS: Enoxaparin 40 mg Syringe SC SCH (11:44)
--- NOTE | 2017-08-30 11:52 | CP.PCM.PN ---
Subjective - Date & Time of Evaluation Date of Evaluation: 08/30/17 Time of Evaluation: 07:00 - Subjective Subjective: awake alert says shes feeling better No fever WBC 19 K repeat CXR neg Objective - Vital Signs/Intake and Output Vital Signs (last 24 hours): Temp Pulse Resp BP Pulse Ox 98.2 F 98 H 20 104/63 98 08/30/17 00:00 08/30/17 00:00 08/30/17 00:00 08/30/17 00:00 08/30/17 00:00 Intake and Output: 08/30/17 08/30/17 06:59 18:59 Intake Total 2150 Balance 2150 - Medications Medications: Current Medications Acetaminophen (Tylenol 325mg Tab) 650 mg PO Q6 PRN PRN Reason: Pain, moderate (4-7) Last Admin: 08/30/17 02:31 Dose: 650 mg Albuterol/Ipratropium (Duoneb 3 Mg/0.5 Mg (3 Ml) Ud) 3 ml INH RQ8 PRN PRN Reason: Shortness of Breath Last Admin: 08/29/17 07:45 Dose: 3 ml Enoxaparin Sodium (Lovenox) 40 mg SC DAILY [facility] Last Admin: 08/30/17 11:44 Dose: 40 mg Ceftriaxone Sodium 1 gm/ (Dextrose) 100 mls @ 100 mls/hr IVPB Q12H [facility] Last Admin: 08/30/17 06:00 Dose: 100 mls/hr Azithromycin 500 mg/ Sodium (Chloride) 250 mls @ 167 mls/hr IVPB Q24H [facility] Last Admin: 08/29/17 20:25 Dose: 167 mls/hr Sodium Chloride (Sodium Chloride 0.9%) 1,000 mls @ 100 mls/hr IV .Q10H [facility] Last Admin: 08/30/17 05:54 Dose: 100 mls/hr Insulin Aspart (Novolog) 0 unit SC ACHS [facility] PRN Reason: Protocol Last Admin: 08/29/17 21:49 Dose: Not Given Metformin HCl (Glucophage) 500 mg PO DAILY [facility] Last Admin: 08/30/17 11:43 Dose: 500 mg Promethazine HCl/Codeine (Phenergan/Codeine Oral Syrup) 5 ml PO Q4 PRN PRN Reason: Cough Stop: 08/31/17 15:40 Last Admin: 08/30/17 11:44 Dose: 5 ml Fluticasone/Salmeterol (Advair Diskus 250/50) 1 puff INH RQ12 [facility] Last Admin: 08/30/17 10:40 Dose: 1 puff Vitamin B Complex/Vitamin C (Berocca) 1 tab PO DAILY [facility] Last Admin: 08/30/17 11:44 Dose: 1 tab - Labs Labs: 08/30/17 06:24 08/30/17 06:24 - Constitutional Appears: Non-toxic, Chronically Ill - Head Exam Head Exam: NORMOCEPHALIC - Eye Exam Eye Exam: PERRL - ENT Exam ENT Exam: Mucous Membranes Dry - Neck Exam Neck Exam: absent: Lymphadenopathy - Respiratory Exam Respiratory Exam: Decreased Breath Sounds, Rhonchi - Cardiovascular Exam Cardiovascular Exam: REGULAR RHYTHM, +S1, +S2 - GI/Abdominal Exam GI & Abdominal Exam: Distended, Soft. absent: Tenderness - Rectal Exam Rectal Exam: Deferred - Exam Exam: NORMAL INSPECTION - Extremities Exam Extremities Exam: absent: Pedal Edema - Back Exam Back Exam: absent: CVA tenderness (L), CVA tenderness (R) - Neurological Exam Neurological Exam: Alert, Awake, CN II-XII Intact - Psychiatric Exam Psychiatric exam: Normal Mood - Skin Skin Exam: Dry, Intact Assessment and Plan (1) Cough Status: Acute (2) Dehydration Status: Acute (3) Upper respiratory infection Status: Acute - Assessment and Plan (Free Text) Assessment: persistent cough leukocytosis and anemia dehydration improved consider CT chest cont IV antibiotics pending cultures Consult Dr ghosh
--- NOTE | 2017-08-30 12:08 | CP.PCM.PN ---
Subjective - Date & Time of Evaluation Date of Evaluation: 08/30/17 Time of Evaluation: 12:07 - Subjective Subjective: pt is seen and examined, follow up consult is dictated #[id number] Objective - Vital Signs/Intake and Output Vital Signs (last 24 hours): Temp Pulse Resp BP Pulse Ox 98.2 F 98 H 20 104/63 98 08/30/17 00:00 08/30/17 00:00 08/30/17 00:00 08/30/17 00:00 08/30/17 00:00 Intake and Output: 08/30/17 08/30/17 06:59 18:59 Intake Total 2150 Balance 2150 - Medications Medications: Current Medications Acetaminophen (Tylenol 325mg Tab) 650 mg PO Q6 PRN PRN Reason: Pain, moderate (4-7) Last Admin: 08/30/17 02:31 Dose: 650 mg Albuterol/Ipratropium (Duoneb 3 Mg/0.5 Mg (3 Ml) Ud) 3 ml INH RQ8 PRN PRN Reason: Shortness of Breath Last Admin: 08/29/17 07:45 Dose: 3 ml Enoxaparin Sodium (Lovenox) 40 mg SC DAILY [facility] Last Admin: 08/30/17 11:44 Dose: 40 mg Ceftriaxone Sodium 1 gm/ (Dextrose) 100 mls @ 100 mls/hr IVPB Q12H [facility] Last Admin: 08/30/17 06:00 Dose: 100 mls/hr Azithromycin 500 mg/ Sodium (Chloride) 250 mls @ 167 mls/hr IVPB Q24H [facility] Last Admin: 08/29/17 20:25 Dose: 167 mls/hr Sodium Chloride (Sodium Chloride 0.9%) 1,000 mls @ 100 mls/hr IV .Q10H [facility] Last Admin: 08/30/17 05:54 Dose: 100 mls/hr Insulin Aspart (Novolog) 0 unit SC ACHS [facility] PRN Reason: Protocol Last Admin: 08/29/17 21:49 Dose: Not Given Metformin HCl (Glucophage) 500 mg PO DAILY [facility] Last Admin: 08/30/17 11:43 Dose: 500 mg Promethazine HCl/Codeine (Phenergan/Codeine Oral Syrup) 5 ml PO Q4 PRN PRN Reason: Cough Stop: 08/31/17 15:40 Last Admin: 08/30/17 11:44 Dose: 5 ml Fluticasone/Salmeterol (Advair Diskus 250/50) 1 puff INH RQ12 [facility] Last Admin: 08/30/17 10:40 Dose: 1 puff Vitamin B Complex/Vitamin C (Berocca) 1 tab PO DAILY [facility] Last Admin: 08/30/17 11:44 Dose: 1 tab - Labs Labs: 08/30/17 06:24 08/30/17 06:24
[2017-08-30] MEDS: Azithromycin 500 MG in Sodium Chloride 0.9% 250 ML IVPB SCH (14:00)
--- NOTE | 2017-08-30 16:09 | CP.PCM.PN ---
Subjective - Date & Time of Evaluation Date of Evaluation: 08/30/17 Time of Evaluation: 16:08 - Subjective Subjective: cough Objective - Vital Signs/Intake and Output Vital Signs (last 24 hours): Temp Pulse Resp BP Pulse Ox 98.2 F 98 H 20 104/63 98 08/30/17 00:00 08/30/17 00:00 08/30/17 00:00 08/30/17 00:00 08/30/17 00:00 Intake and Output: 08/30/17 08/30/17 06:59 18:59 Intake Total 2150 Balance 2150 - Medications Medications: Current Medications Acetaminophen (Tylenol 325mg Tab) 650 mg PO Q6 PRN PRN Reason: Pain, moderate (4-7) Last Admin: 08/30/17 02:31 Dose: 650 mg Albuterol/Ipratropium (Duoneb 3 Mg/0.5 Mg (3 Ml) Ud) 3 ml INH RQ8 PRN PRN Reason: Shortness of Breath Last Admin: 08/29/17 07:45 Dose: 3 ml Enoxaparin Sodium (Lovenox) 40 mg SC DAILY [facility] Last Admin: 08/30/17 11:44 Dose: 40 mg Ceftriaxone Sodium 1 gm/ (Dextrose) 100 mls @ 100 mls/hr IVPB Q12H [facility] Last Admin: 08/30/17 06:00 Dose: 100 mls/hr Azithromycin 500 mg/ Sodium (Chloride) 250 mls @ 167 mls/hr IVPB Q24H [facility] Last Admin: 08/30/17 14:00 Dose: 167 mls/hr Sodium Chloride (Sodium Chloride 0.9%) 1,000 mls @ 100 mls/hr IV .Q10H [facility] Last Admin: 08/30/17 12:16 Dose: Not Given Insulin Aspart (Novolog) 0 unit SC ACHS [facility] PRN Reason: Protocol Last Admin: 08/30/17 12:15 Dose: 2 unit Metformin HCl (Glucophage) 500 mg PO DAILY [facility] Last Admin: 08/30/17 11:43 Dose: 500 mg Promethazine HCl/Codeine (Phenergan/Codeine Oral Syrup) 5 ml PO Q4 PRN PRN Reason: Cough Stop: 08/31/17 15:40 Last Admin: 08/30/17 11:44 Dose: 5 ml Fluticasone/Salmeterol (Advair Diskus 250/50) 1 puff INH RQ12 [facility] Last Admin: 08/30/17 10:40 Dose: 1 puff Vitamin B Complex/Vitamin C (Berocca) 1 tab PO DAILY [facility] Last Admin: 08/30/17 11:44 Dose: 1 tab - Labs Labs: 08/30/17 06:24 08/30/17 06:24 - Constitutional Appears: No Acute Distress - Eye Exam Eye Exam: Normal appearance - ENT Exam ENT Exam: Mucous Membranes Moist - Respiratory Exam Respiratory Exam: Rhonchi - Cardiovascular Exam Cardiovascular Exam: REGULAR RHYTHM - GI/Abdominal Exam GI & Abdominal Exam: Soft - Extremities Exam Extremities Exam: absent: Pedal Edema - Neurological Exam Neurological Exam: Alert, Oriented x3 Assessment and Plan - Assessment and Plan (Free Text) Assessment: repeat x ray is ok. wbc still 19k, abnormal lfts noted. ct antibiotics. na is 134
[2017-08-30] MEDS ORDERED: Magnesium Hydroxide Susp 30 ml UD PO ONE ×3 (16:20→17:47)
--- NOTE | 2017-08-30 17:19 | CP.PCM.PN ---
Subjective - Date & Time of Evaluation Date of Evaluation: 08/30/17 Time of Evaluation: 09:00 - Subjective Subjective: patient seen and examined Still complaining of cough which is mostly dry Afebrile Repeat chest x-ray and CAT scan noted Objective - Vital Signs/Intake and Output Vital Signs (last 24 hours): Temp Pulse Resp BP Pulse Ox 98.0 F 122 H 20 126/73 96 08/30/17 15:00 08/30/17 15:00 08/30/17 15:00 08/30/17 15:00 08/30/17 15:00 Intake and Output: 08/30/17 08/30/17 06:59 18:59 Intake Total 2150 Balance 2150 - Medications Medications: Current Medications Acetaminophen (Tylenol 325mg Tab) 650 mg PO Q6 PRN PRN Reason: Pain, moderate (4-7) Last Admin: 08/30/17 02:31 Dose: 650 mg Albuterol/Ipratropium (Duoneb 3 Mg/0.5 Mg (3 Ml) Ud) 3 ml INH RQ8 PRN PRN Reason: Shortness of Breath Last Admin: 08/29/17 07:45 Dose: 3 ml Docusate Sodium (Colace) 100 mg PO BID [facility] Enoxaparin Sodium (Lovenox) 40 mg SC DAILY [facility] Last Admin: 08/30/17 11:44 Dose: 40 mg Ceftriaxone Sodium 1 gm/ (Dextrose) 100 mls @ 100 mls/hr IVPB Q12H [facility] Last Admin: 08/30/17 06:00 Dose: 100 mls/hr Azithromycin 500 mg/ Sodium (Chloride) 250 mls @ 167 mls/hr IVPB Q24H [facility] Last Admin: 08/30/17 14:00 Dose: 167 mls/hr Sodium Chloride (Sodium Chloride 0.9%) 1,000 mls @ 100 mls/hr IV .Q10H [facility] Last Admin: 08/30/17 12:16 Dose: Not Given Insulin Aspart (Novolog) 0 unit SC ACHS [facility] PRN Reason: Protocol Last Admin: 08/30/17 12:15 Dose: 2 unit Magnesium Hydroxide (Milk Of Magnesia) 30 ml PO ONCE ONE Stop: 08/31/17 10:01 Magnesium Hydroxide (Milk Of Magnesia) 30 ml PO ONCE ONE Stop: 08/30/17 17:12 Metformin HCl (Glucophage) 500 mg PO DAILY [facility] Last Admin: 08/30/17 11:43 Dose: 500 mg Methylprednisolone (Solu-Medrol) 40 mg IV Q8 [facility] Promethazine HCl/Codeine (Phenergan/Codeine Oral Syrup) 5 ml PO Q4 PRN PRN Reason: Cough Stop: 08/31/17 15:40 Last Admin: 08/30/17 11:44 Dose: 5 ml Vitamin B Complex/Vitamin C (Berocca) 1 tab PO DAILY [facility] Last Admin: 08/30/17 11:44 Dose: 1 tab - Labs Labs: 08/30/17 06:24 08/30/17 06:24 - Head Exam Head Exam: ATRAUMATIC, NORMOCEPHALIC - Eye Exam Eye Exam: Normal appearance - ENT Exam ENT Exam: Mucous Membranes Moist - Neck Exam Neck Exam: Normal Inspection - Respiratory Exam Respiratory Exam: Clear to Ausculation Bilateral - Cardiovascular Exam Cardiovascular Exam: REGULAR RHYTHM - GI/Abdominal Exam GI & Abdominal Exam: Soft, Normal Bowel Sounds - Extremities Exam Extremities Exam: Normal Inspection - Neurological Exam Neurological Exam: Alert, Oriented x3 Assessment and Plan (1) Cough Assessment & Plan: chest x-ray and CAT scan noted Patient still coughing Continue antibiotics IV steroids Discontinue Advair Continue nebulizer and antitussive CAT scan of the sinuses Status: Acute
[2017-08-30] MEDS: MethylPREDNISolone 40 mg Vial IV SCH (18:22)
--- NOTE | 2017-08-30 18:27 | US ---
HISTORY: abnormal lfts COMPARISON: None available. TECHNIQUE: Sonographic evaluation of the abdomen. FINDINGS: LIVER: Measures 15.1 cm in sagittal dimension. Echogenic liver may be seen in setting of hepatic parenchymal disease or fatty infiltration. No focal hepatic mass identified. The main portal vein appears patent with normal directional flow. No intrahepatic bile duct dilatation. GALLBLADDER: No gallstones. No gallbladder wall thickening. Negative sonographic Melchor's sign as assessed by the english language arts teacher. COMMON BILE DUCT: Measures 8 mm. PANCREAS: Not well visualized. RIGHT KIDNEY: Measures 9.7 x 4.6 x 4.9cm. No obstructing calculus or hydronephrosis identified. LEFT KIDNEY: Measures 9.7 x 5.8 x 5.5cm. No obstructing or hydronephrosis identified. SPLEEN: Measures approximately 8.3 cm. AORTA: Limited views appear unremarkable. IVC: Limited views appear unremarkable. OTHER FINDINGS: None. IMPRESSION: Echogenic liver may be seen in setting of hepatic parenchymal disease or fatty infiltration.
--- NOTE | 2017-08-30 19:00 | CT ---
CT chest without IV contrast Indication: Persistent cough Technique: Contiguous axial images were obtained through the chest without intravenous contrast enhancement. Sagittal and coronal reconstructions were generated and reviewed. This CT exam was performed using 1 or more of the falling dose reduction techniques: Automated exposure control, adjustment of the MAA and/or kV according to patient size, and/or use of iterative reconstruction technique. Radiation dose (DLP): 159.03 MGy-cm. Comparison: Chest x-ray performed earlier the same day Findings: Visualized portions of the inferior thyroid gland appear grossly unremarkable. The unenhanced mediastinal and hilar vascular structures appear grossly unremarkable. The heart appears within normal limits of size. Dense atherosclerotic calcifications of the aorta. No focal consolidation. No pleural effusion. No pneumothorax. No suspicious pulmonary nodules measuring greater than 5 mm. Small hiatal hernia/distal esophageal wall thickening. Limited visualization of the noncontrast upper abdomen appears grossly unremarkable. Mild degenerative changes of the spine. Impression: No focal consolidation. No pleural effusion. No pneumothorax.
[2017-08-31] MEDS: MethylPREDNISolone 40 mg Vial IV SCH ×3 (01:14→17:49)
--- NOTE | 2017-08-31 01:39 | PN ---
FOLLOWUP RENAL CONSULTATION DATE: LOCATION: The patient is located in room 357, bed A. REQUESTED BY: Dr. Bryson Shane. REASON FOR FOLLOWUP: Hyponatremia, for further evaluation. SUBJECTIVE: Mrs. Darling is a 72 years old elderly [place] female with a past medical history significant for hypertension, hyperlipidemia, who was admitted with the chief complaints of cough, runny nose and generalized body aches and fever and the patient was found to have low serum sodium and decreased p.o. intake. The patient was started on IV fluid and also started on IV antibiotic for possible pneumonia. The patient is feeling slightly better, but still complains severe cough, though less muscle pains today. No chest pain. No palpitation. No dysuria or frequency. PHYSICAL EXAMINATION GENERAL: Mrs. Darling is a 72 years old elderly female, moderately built, moderately nourished, not in any distress with persistent cough and runny nose. VITAL SIGNS: Her vital signs as follows, blood pressure 123/68, pulse 108, respirations 20, temperature 98.6, saturation 98%. Height 5 feet. Weight is 112 pounds. HEENT: Pupils normal and reactive to light and accommodation. Conjunctivae are pink. Sclerae are anicteric. Tongue is moist. Trachea is midline. LUNGS: Symmetric on both sides. Bilateral breath sounds present. No crackles. CARDIOVASCULAR SYSTEM: [place] at the fifth intercostal space of intermediate midclavicular line. S1 and S2 audible. No murmur or gallop. ABDOMEN: Normal in appearance, soft, tympanic. No guarding. No rigidity. No hepatosplenomegaly. CENTRAL NERVOUS SYSTEM: The patient is alert, awake, oriented x3. Nonfocal neuro examination. Cranial nerves II through XII grossly intact. Sensory and motor system is grossly within normal limits. EXTREMITIES: No cyanosis. No clubbing. No edema. LABORATORY DATA: Her laboratory data includes as follows: As of 08/30/2017, WBC 19.1, hemoglobin 9.8, hematocrit is 29.4, platelets 440 and neutrophils 79, lymph 8, monos 12, eosinophils 1. Sodium 134, potassium 3.7, chloride 96, CO2 of 26, BUN 5, creatinine 0.3 and glucose 214 and serum osmolality 288 and uric acid 1.3 and calcium is 8.3 and total bili 0.5. AST 53, ALT 83, alkaline phos is 101, total protein 6.3, albumin is 2.7 and urine osmolality is 294, urine sodium is 25 and urine potassium is 18.8 and urine for Legionella antigen is negative and sputum culture of Gram stain is normal penny. Ultrasound of the abdomen as of 08/30/2017: Right kidney 9.7 x 4.6 x 4.9 cm. No obstructing calculus, hydronephrosis identified. Left kidney 9.7 x 5.8 x 5.5 cm. No obstructing hydrocephalus identified. Spleen measures 8.3 cm. Impression: Echogenic liver, may be seen in the setting of hepatic parenchymal disease or fatty infiltration. CT of the chest as of 08/30/2017. Impression: No focal consolidation. No pleural effusion. No pneumothorax. MEDICATIONS: Her current medications include as follows; azithromycin 500 mg q. 24 hours and Berocca one tablet daily and Rocephin 1 g daily and Colace 100 mg p.o. b.i.d. and DuoNeb inhaler and metformin 500 mg p.o. daily and Lovenox 40 mg subcu daily, milk of magnesium 30 mL p.o. x1 and Phenergan with Codeine 5 mL q. 4 hours p.r.n. and IV fluids normal saline at 100 mL per hour and methylprednisolone 40 mg IV q. 8 hours and Tylenol 325 mg q. 6 hours. ASSESSMENT AND PLAN: In summary, Mrs. Darling is a 72 years old elderly [place] female with a history of hypertension, hyperlipidemia, diabetes, was admitted with body aches and fever, cough, runny nose, decreased p.o. intake and decreased serum sodium and severe pains in both lower extremities. 1. Hyponatremia, most likely secondary to intravascular volume depletion. 2. Upper respiratory infection, most likely viral syndrome. 3. Type 2 diabetes. 4. Hyperlipidemia. We will hold atorvastatin until muscle pains improve and continue normal saline at 100 mL per hour. Continue antibiotics, Zithromax and Rocephin as per Pulmonary and as per Dr. Bryson Shane. Repeat BMP in the a.m. We will follow with you. Thank you for allowing me to participate in your patient's care. Samantha Alfaro MD
[2017-08-31] MEDS: Promethazine/Cod 6.25mg-10mg/5ml Syr UD PO PRN ×2 (05:03→10:40)
[2017-08-31] MEDS: Sodium Chloride 0.9% 1,000 ML IV SCH ×3 (06:04→17:55)
[2017-08-31 07:36] LABS: BASO % 0.1 % (0.0-2.0); LYMPH % 6.6 % (20.0-40.0); MEAN CELL VOLUME 87.2 fL (81.0-99.0); MEAN CORPUSCULAR HEMOGLOBIN 28.8 pg (27.0-31.0); MEAN CORPUSCULAR HGB CONC 33.1 g/dL (33.0-37.0); MEAN PLATELET VOLUME 8.3 fL (7.2-11.7); MONO # 0.3 K/uL (0.0-0.8); MONO % 2.1 % (0.0-10.0); PLATELET COUNT 474 K/uL (130-400); WHITE BLOOD COUNT 14.9 K/uL (4.8-10.8)
[2017-08-31 07:50] LABS: CHLORIDE 96 mmol/L (98-107); POTASSIUM 4.4 mmol/L (3.6-5.2); SODIUM 131 mmol/L (132-148)
[2017-08-31 07:51] LABS: CHLORIDE URINE 41 mmol/L (32-290)
[2017-08-31 07:52] LABS: GFR AFRICAN-AMERICAN > 60
[2017-08-31 07:53] LABS: BLOOD UREA NITROGEN 11 mg/dL (7-17); CALCIUM 7.7 mg/dl (8.6-10.4); CARBON DIOXIDE 27 mmol/L (22-30); GLUCOSE,RANDOM 310 mg/dL (65-105)
[2017-08-31] MEDS: (Novolog) Insulin Aspart, Recombinant 100 u/ml 10 ml vial SC SCH ×4 (08:20→22:21)
[2017-08-31] MEDS ORDERED: Magnesium Hydroxide Susp 30 ml UD PO ONE (10:00)
[2017-08-31 10:03] LABS: NEUTROPHIL 92 % (50-75); TOTAL CELLS COUNTED 100
[2017-08-31] MEDS: Vitamin B Complex/Vitamin C Tab PO SCH (10:07)
[2017-08-31] MEDS: Enoxaparin 40 mg Syringe SC SCH (10:09)
--- NOTE | 2017-08-31 12:22 | CP.PCM.PN ---
Subjective - Date & Time of Evaluation Date of Evaluation: 08/31/17 Time of Evaluation: 08:00 - Subjective Subjective: events noted for CT sinuses Chest clear Objective - Vital Signs/Intake and Output Vital Signs (last 24 hours): Temp Pulse Resp BP Pulse Ox 98.3 F 90 20 129/74 95 08/31/17 08:45 08/31/17 08:45 08/31/17 08:45 08/31/17 08:45 08/31/17 08:45 Intake and Output: 08/31/17 08/31/17 06:59 18:59 Intake Total 1040 Balance 1040 - Medications Medications: Current Medications Acetaminophen (Tylenol 325mg Tab) 650 mg PO Q6 PRN PRN Reason: Pain, moderate (4-7) Last Admin: 08/30/17 02:31 Dose: 650 mg Albuterol/Ipratropium (Duoneb 3 Mg/0.5 Mg (3 Ml) Ud) 3 ml INH RQ8 PRN PRN Reason: Shortness of Breath Last Admin: 08/29/17 07:45 Dose: 3 ml Docusate Sodium (Colace) 100 mg PO BID [facility] Last Admin: 08/31/17 10:07 Dose: 100 mg Enoxaparin Sodium (Lovenox) 40 mg SC DAILY [facility] Last Admin: 08/31/17 10:09 Dose: 40 mg Ceftriaxone Sodium 1 gm/ (Dextrose) 100 mls @ 100 mls/hr IVPB Q12H [facility] Last Admin: 08/31/17 06:03 Dose: 100 mls/hr Azithromycin 500 mg/ Sodium (Chloride) 250 mls @ 167 mls/hr IVPB Q24H [facility] Last Admin: 08/30/17 14:00 Dose: 167 mls/hr Sodium Chloride (Sodium Chloride 0.9%) 1,000 mls @ 100 mls/hr IV .Q10H [facility] Last Admin: 08/31/17 07:36 Dose: Not Given Insulin Aspart (Novolog) 0 unit SC ACHS [facility] PRN Reason: Protocol Last Admin: 08/31/17 08:20 Dose: 4 unit Metformin HCl (Glucophage) 500 mg PO DAILY [facility] Last Admin: 08/31/17 10:08 Dose: 500 mg Methylprednisolone (Solu-Medrol) 40 mg IV Q8H [facility] Last Admin: 08/31/17 10:40 Dose: 40 mg Promethazine HCl/Codeine (Phenergan/Codeine Oral Syrup) 5 ml PO Q4 PRN PRN Reason: Cough Stop: 08/31/17 15:40 Last Admin: 08/31/17 10:40 Dose: 5 ml Vitamin B Complex/Vitamin C (Berocca) 1 tab PO DAILY [facility] Last Admin: 08/31/17 10:07 Dose: 1 tab - Labs Labs: 08/31/17 07:18 08/31/17 07:18 - Constitutional Appears: Non-toxic, Chronically Ill - Head Exam Head Exam: NORMOCEPHALIC - Eye Exam Eye Exam: PERRL - ENT Exam ENT Exam: Mucous Membranes Dry - Neck Exam Neck Exam: absent: Lymphadenopathy - Respiratory Exam Respiratory Exam: Decreased Breath Sounds, Clear to Ausculation Bilateral Assessment and Plan (1) Cough Status: Acute (2) Dehydration Status: Acute (3) Upper respiratory infection Status: Acute
--- NOTE | 2017-08-31 12:28 | CP.PCM.PN ---
Subjective - Date & Time of Evaluation Date of Evaluation: 08/31/17 Time of Evaluation: 12:27 - Subjective Subjective: cough is better.ct is neg.verbal Objective - Vital Signs/Intake and Output Vital Signs (last 24 hours): Temp Pulse Resp BP Pulse Ox 98.3 F 90 20 129/74 95 08/31/17 08:45 08/31/17 08:45 08/31/17 08:45 08/31/17 08:45 08/31/17 08:45 Intake and Output: 08/31/17 08/31/17 06:59 18:59 Intake Total 1040 Balance 1040 - Medications Medications: Current Medications Acetaminophen (Tylenol 325mg Tab) 650 mg PO Q6 PRN PRN Reason: Pain, moderate (4-7) Last Admin: 08/30/17 02:31 Dose: 650 mg Albuterol/Ipratropium (Duoneb 3 Mg/0.5 Mg (3 Ml) Ud) 3 ml INH RQ8 PRN PRN Reason: Shortness of Breath Last Admin: 08/29/17 07:45 Dose: 3 ml Docusate Sodium (Colace) 100 mg PO BID [facility] Last Admin: 08/31/17 10:07 Dose: 100 mg Enoxaparin Sodium (Lovenox) 40 mg SC DAILY [facility] Last Admin: 08/31/17 10:09 Dose: 40 mg Ceftriaxone Sodium 1 gm/ (Dextrose) 100 mls @ 100 mls/hr IVPB Q12H [facility] Last Admin: 08/31/17 06:03 Dose: 100 mls/hr Azithromycin 500 mg/ Sodium (Chloride) 250 mls @ 167 mls/hr IVPB Q24H [facility] Last Admin: 08/30/17 14:00 Dose: 167 mls/hr Sodium Chloride (Sodium Chloride 0.9%) 1,000 mls @ 100 mls/hr IV .Q10H [facility] Last Admin: 08/31/17 07:36 Dose: Not Given Insulin Aspart (Novolog) 0 unit SC ACHS [facility] PRN Reason: Protocol Last Admin: 08/31/17 12:25 Dose: 4 unit Metformin HCl (Glucophage) 500 mg PO DAILY [facility] Last Admin: 08/31/17 10:08 Dose: 500 mg Methylprednisolone (Solu-Medrol) 40 mg IV Q8H [facility] Last Admin: 08/31/17 10:40 Dose: 40 mg Promethazine HCl/Codeine (Phenergan/Codeine Oral Syrup) 5 ml PO Q4 PRN PRN Reason: Cough Stop: 08/31/17 15:40 Last Admin: 08/31/17 10:40 Dose: 5 ml Vitamin B Complex/Vitamin C (Berocca) 1 tab PO DAILY [facility] Last Admin: 08/31/17 10:07 Dose: 1 tab - Labs Labs: 08/31/17 07:18 08/31/17 07:18 - Constitutional Appears: No Acute Distress - Head Exam Head Exam: NORMOCEPHALIC - ENT Exam ENT Exam: Mucous Membranes Moist - Respiratory Exam Respiratory Exam: Clear to Ausculation Bilateral - Cardiovascular Exam Cardiovascular Exam: REGULAR RHYTHM - GI/Abdominal Exam GI & Abdominal Exam: Soft - Neurological Exam Neurological Exam: Alert, Oriented x3 Assessment and Plan - Assessment and Plan (Free Text) Assessment: pneumonai getting better.
[2017-08-31] MEDS: Azithromycin 500 MG in Sodium Chloride 0.9% 250 ML IVPB SCH (14:33)
--- NOTE | 2017-08-31 16:35 | CP.PCM.PN ---
Subjective - Date & Time of Evaluation Date of Evaluation: 08/31/17 Time of Evaluation: 09:00 - Subjective Subjective: Patient seen and examined Cough much better Denies shortness of breath Denies fevers chills or chest pain Objective - Vital Signs/Intake and Output Vital Signs (last 24 hours): Temp Pulse Resp BP Pulse Ox 98.0 F 106 H 20 117/72 95 08/31/17 15:07 08/31/17 15:07 08/31/17 15:07 08/31/17 15:07 08/31/17 15:07 Intake and Output: 08/31/17 08/31/17 06:59 18:59 Intake Total 1040 1400 Balance 1040 1400 - Medications Medications: Current Medications Acetaminophen (Tylenol 325mg Tab) 650 mg PO Q6 PRN PRN Reason: Pain, moderate (4-7) Last Admin: 08/30/17 02:31 Dose: 650 mg Albuterol/Ipratropium (Duoneb 3 Mg/0.5 Mg (3 Ml) Ud) 3 ml INH RQ8 PRN PRN Reason: Shortness of Breath Last Admin: 08/29/17 07:45 Dose: 3 ml Docusate Sodium (Colace) 100 mg PO BID [facility] Last Admin: 08/31/17 10:07 Dose: 100 mg Enoxaparin Sodium (Lovenox) 40 mg SC DAILY [facility] Last Admin: 08/31/17 10:09 Dose: 40 mg Ceftriaxone Sodium 1 gm/ (Dextrose) 100 mls @ 100 mls/hr IVPB Q12H [facility] Last Admin: 08/31/17 06:03 Dose: 100 mls/hr Azithromycin 500 mg/ Sodium (Chloride) 250 mls @ 167 mls/hr IVPB Q24H [facility] Last Admin: 08/31/17 14:33 Dose: 167 mls/hr Sodium Chloride (Sodium Chloride 0.9%) 1,000 mls @ 100 mls/hr IV .Q10H [facility] Last Admin: 08/31/17 07:36 Dose: Not Given Insulin Aspart (Novolog) 0 unit SC ACHS [facility] PRN Reason: Protocol Last Admin: 08/31/17 12:25 Dose: 4 unit Metformin HCl (Glucophage) 500 mg PO DAILY [facility] Last Admin: 08/31/17 10:08 Dose: 500 mg Methylprednisolone (Solu-Medrol) 40 mg IV Q8H [facility] Last Admin: 08/31/17 10:40 Dose: 40 mg Vitamin B Complex/Vitamin C (Berocca) 1 tab PO DAILY [facility] Last Admin: 08/31/17 10:07 Dose: 1 tab - Labs Labs: 08/31/17 07:18 08/31/17 07:18 - Head Exam Head Exam: ATRAUMATIC, NORMOCEPHALIC - Eye Exam Eye Exam: Normal appearance - ENT Exam ENT Exam: Mucous Membranes Moist - Neck Exam Neck Exam: Normal Inspection - Respiratory Exam Respiratory Exam: Rales - Cardiovascular Exam Cardiovascular Exam: REGULAR RHYTHM - GI/Abdominal Exam GI & Abdominal Exam: Soft, Normal Bowel Sounds - Extremities Exam Extremities Exam: Full ROM, Normal Inspection Assessment and Plan (1) Cough Assessment & Plan: Most likely upper airway reflex syndrome Continue IV steroids Continue antibiotics and nebulizer treatment Status: Acute
--- NOTE | 2017-08-31 21:28 | CP.PCM.PN ---
Subjective - Date & Time of Evaluation Date of Evaluation: 08/31/17 Time of Evaluation: 16:15 - Subjective Subjective: pt is seen and examined, follow up consult is dictated #[id number] Objective - Vital Signs/Intake and Output Vital Signs (last 24 hours): Temp Pulse Resp BP Pulse Ox 98.0 F 106 H 20 117/72 95 08/31/17 15:07 08/31/17 15:07 08/31/17 15:07 08/31/17 15:07 08/31/17 15:07 Intake and Output: 08/31/17 09/01/17 18:59 06:59 Intake Total 1400 Balance 1400 - Medications Medications: Current Medications Acetaminophen (Tylenol 325mg Tab) 650 mg PO Q6 PRN PRN Reason: Pain, moderate (4-7) Last Admin: 08/30/17 02:31 Dose: 650 mg Albuterol/Ipratropium (Duoneb 3 Mg/0.5 Mg (3 Ml) Ud) 3 ml INH RQ8 PRN PRN Reason: Shortness of Breath Last Admin: 08/29/17 07:45 Dose: 3 ml Docusate Sodium (Colace) 100 mg PO BID [facility] Last Admin: 08/31/17 17:50 Dose: 100 mg Enoxaparin Sodium (Lovenox) 40 mg SC DAILY [facility] Last Admin: 08/31/17 10:09 Dose: 40 mg Ceftriaxone Sodium 1 gm/ (Dextrose) 100 mls @ 100 mls/hr IVPB Q12H [facility] Last Admin: 08/31/17 06:03 Dose: 100 mls/hr Azithromycin 500 mg/ Sodium (Chloride) 250 mls @ 167 mls/hr IVPB Q24H [facility] Last Admin: 08/31/17 14:33 Dose: 167 mls/hr Sodium Chloride (Sodium Chloride 0.9%) 1,000 mls @ 100 mls/hr IV .Q10H [facility] Last Admin: 08/31/17 17:55 Dose: 100 mls/hr Insulin Aspart (Novolog) 0 unit SC ACHS [facility] PRN Reason: Protocol Last Admin: 08/31/17 16:30 Dose: 4 unit Metformin HCl (Glucophage) 500 mg PO DAILY [facility] Last Admin: 08/31/17 10:08 Dose: 500 mg Methylprednisolone (Solu-Medrol) 40 mg IV Q8H [facility] Last Admin: 08/31/17 17:49 Dose: 40 mg Vitamin B Complex/Vitamin C (Berocca) 1 tab PO DAILY [facility] Last Admin: 08/31/17 10:07 Dose: 1 tab - Labs Labs: 08/31/17 07:18 08/31/17 07:18
--- NOTE | 2017-08-31 23:53 | CON ---
FOLLOWUP RENAL CONSULTATION LOCATION: The patient is located in room 357, bed A. REQUESTING PHYSICIAN: Dr. Bryson Shane. REASON FOR FOLLOWUP: Hyponatremia, diabetes and URI, rule out pneumonia. HISTORY OF PRESENT ILLNESS: Mrs. Darling is a 72-year-old elderly [place]iqu[place] female with a past medical history significant for hyperlipidemia, diabetes type 2, was admitted with severe cough, shortness of breath and severe muscle pains and found to have a low serum sodium. The patient is feeling much better today, less cough and decreased muscle pain today. No chest pain, no palpitation. No fever. No dysuria, no frequency. PHYSICAL EXAMINATION: GENERAL: Mrs. Darling is a 72-year-old elderly female, moderately-built, moderately-nourished, not in acute distress. VITAL SIGNS: As follows; blood pressure 117/72, pulse 106, respirations 20, temperature 98, saturation 95%. Height 5 feet, weight is 112 pounds. HEENT: Pupils normal and reactive to light and accommodation. Conjunctivae pink. Sclerae anicteric. Tongue is moist. Trachea is midline. LUNGS: Symmetrical on both sides. Bilateral breath sounds present. Clear on auscultation. CARDIOVASCULAR SYSTEM: Tok at the fifth intercostal space, midclavicular line. S1 and S2 audible. No murmur or gallop. ABDOMEN: Normal in appearance, soft, and tympanic. No guarding. No rigidity. No hepatosplenomegaly. CENTRAL NERVOUS SYSTEM: The patient is alert, awake, and oriented x3. Nonfocal neuro examination. Cranial nerves II through XII grossly intact. Sensory and motor system is within normal limits. EXTREMITIES: No cyanosis, no clubbing, no edema. CURRENT MEDICATIONS: Include as follows; azithromycin 500 mg q.24 hours, Berocca one tablet daily, Rocephin 1 g q.12 hours, Colace 100 mg p.o. b.i.d., DuoNeb inhaler q.8 hours, metformin 500 mg p.o. daily, Lovenox 40 mg subcu daily and NovoLog, IV fluids normal saline at 100 mL per hour, Solu-Medrol 40 mg IV q.8 hours and Tylenol. LABORATORY DATA: Includes as follows; as of 08/31/2017: WBC 14.9, hemoglobin 10.3, hematocrit is 31, platelets 474, neutrophils 92, bands 1, lymph 5, monos 2. Sodium 131, potassium 4.4, chloride 96, CO2 of 27, BUN 11, creatinine 0.4, glucose 329 and calcium is 7.7. Corrected sodium is about 133 to 134, calcium 7.7, and hepatitis B surface antigen is 92, core antibody is negative, hep C antibody is negative, hepatitis C antibody IgM is negative. Sputum culture, normal penny. Blood culture x2 negative day #1. ASSESSMENT: In summary, Mrs. Darling is a 72-year-old elderly [place]iqu[place] female with history of hyperlipidemia, no hypertension, diabetes type 2, was admitted with cough, shortness of breath, fever, and severe muscle pain and difficult to ambulate and decreased p.o. intake for about 1 to 2 weeks with low serum sodium. 1. Hyponatremia, most likely secondary to intravascular volume depletion and dehydration. Now, the corrected sodium is about 134, still slightly low. 2. Upper respiratory illness, most likely viral syndrome, doubt bacterial infection. All the blood cultures are negative so far. 3. Uncontrolled diabetes. 4. Hyperlipidemia. Continue to hold atorvastatin until symptoms improves, cannot rule out myalgia secondary to atorvastatin versus viral infection. PLAN: Continue IV fluids until tomorrow and then discontinue. Encouraged p.o. intake and repeat BMP in a.m. We will follow with you. Thank you for allowing me to participate in your patient's care. Discussed with patient's family at bedside. Samantha Alfaro MD
[2017-09-01] MEDS: MethylPREDNISolone 40 mg Vial IV SCH ×2 (01:45→10:00)
[2017-09-01] MEDS: Sodium Chloride 0.9% 1,000 ML IV SCH (03:45)
[2017-09-01 07:20] LABS: CHLORIDE 98 mmol/L (98-107); POTASSIUM 4.6 mmol/L (3.6-5.2); SODIUM 130 mmol/L (132-148)
[2017-09-01 07:23] LABS: GFR AFRICAN-AMERICAN > 60
[2017-09-01 07:24] LABS: BLOOD UREA NITROGEN 14 mg/dL (7-17); CALCIUM 7.7 mg/dl (8.6-10.4); CARBON DIOXIDE 25 mmol/L (22-30); GLUCOSE,RANDOM 340 mg/dL (65-105)
[2017-09-01] MEDS: (Novolog) Insulin Aspart, Recombinant 100 u/ml 10 ml vial SC SCH ×4 (08:03→21:41)
[2017-09-01] MEDS: Vitamin B Complex/Vitamin C Tab PO SCH (09:56)
[2017-09-01] MEDS: Enoxaparin 40 mg Syringe SC SCH (09:57)
--- NOTE | 2017-09-01 12:31 | CP.PCM.PN ---
Subjective - Date & Time of Evaluation Date of Evaluation: 09/01/17 Time of Evaluation: 12:30 - Subjective Subjective: better.labs noted. Objective - Vital Signs/Intake and Output Vital Signs (last 24 hours): Temp Pulse Resp BP Pulse Ox 98.8 F 109 H 20 126/72 95 09/01/17 06:00 09/01/17 00:00 09/01/17 00:00 09/01/17 00:00 09/01/17 06:00 Intake and Output: 09/01/17 09/01/17 06:59 18:59 Intake Total 2120 Balance 2120 - Medications Medications: Current Medications Acetaminophen (Tylenol 325mg Tab) 650 mg PO Q6 PRN PRN Reason: Pain, moderate (4-7) Last Admin: 08/30/17 02:31 Dose: 650 mg Albuterol/Ipratropium (Duoneb 3 Mg/0.5 Mg (3 Ml) Ud) 3 ml INH RQ8 PRN PRN Reason: Shortness of Breath Last Admin: 08/29/17 07:45 Dose: 3 ml Docusate Sodium (Colace) 100 mg PO BID [facility] Last Admin: 09/01/17 09:56 Dose: 100 mg Enoxaparin Sodium (Lovenox) 40 mg SC DAILY [facility] Last Admin: 09/01/17 09:57 Dose: 40 mg Ceftriaxone Sodium 1 gm/ (Dextrose) 100 mls @ 100 mls/hr IVPB Q12H [facility] Last Admin: 09/01/17 06:00 Dose: 100 mls/hr Azithromycin 500 mg/ Sodium (Chloride) 250 mls @ 167 mls/hr IVPB Q24H [facility] Last Admin: 08/31/17 14:33 Dose: 167 mls/hr Insulin Aspart (Novolog) 0 unit SC ACHS [facility] PRN Reason: Protocol Last Admin: 09/01/17 12:16 Dose: 4 unit Metformin HCl (Glucophage) 500 mg PO DAILY [facility] Last Admin: 09/01/17 09:57 Dose: 500 mg Prednisone (Prednisone Tab) 20 mg PO DAILY [facility] Vitamin B Complex/Vitamin C (Berocca) 1 tab PO DAILY [facility] Last Admin: 09/01/17 09:56 Dose: 1 tab - Labs Labs: 08/31/17 07:18 09/01/17 06:48 - Constitutional Appears: No Acute Distress - Eye Exam Eye Exam: Normal appearance - Neck Exam Neck Exam: Normal Inspection - Respiratory Exam Respiratory Exam: Clear to Ausculation Bilateral - Cardiovascular Exam Cardiovascular Exam: REGULAR RHYTHM - GI/Abdominal Exam GI & Abdominal Exam: Soft - Extremities Exam Extremities Exam: absent: Pedal Edema - Neurological Exam Neurological Exam: Alert, Oriented x3 Assessment and Plan - Assessment and Plan (Free Text) Assessment: getting better.will switch to po meds.
[2017-09-01] MEDS: Azithromycin 500 MG in Sodium Chloride 0.9% 250 ML IVPB SCH (13:45)
--- NOTE | 2017-09-01 15:37 | CP.PCM.PN ---
Subjective - Date & Time of Evaluation Date of Evaluation: 09/01/17 Time of Evaluation: 10:45 - Subjective Subjective: Patient seen and examined. Cough much improved Denies fever or chills Appetite improving No chest pain Episode of diaphoresis last night Objective - Vital Signs/Intake and Output Vital Signs (last 24 hours): Temp Pulse Resp BP Pulse Ox 98.8 F 109 H 20 126/72 95 09/01/17 06:00 09/01/17 00:00 09/01/17 00:00 09/01/17 00:00 09/01/17 06:00 Intake and Output: 09/01/17 09/01/17 06:59 18:59 Intake Total 2120 Balance 2120 - Medications Medications: Current Medications Acetaminophen (Tylenol 325mg Tab) 650 mg PO Q6 PRN PRN Reason: Pain, moderate (4-7) Last Admin: 08/30/17 02:31 Dose: 650 mg Albuterol/Ipratropium (Duoneb 3 Mg/0.5 Mg (3 Ml) Ud) 3 ml INH RQ8 PRN PRN Reason: Shortness of Breath Last Admin: 08/29/17 07:45 Dose: 3 ml Docusate Sodium (Colace) 100 mg PO BID [facility] Last Admin: 09/01/17 09:56 Dose: 100 mg Enoxaparin Sodium (Lovenox) 40 mg SC DAILY [facility] Last Admin: 09/01/17 09:57 Dose: 40 mg Ceftriaxone Sodium 1 gm/ (Dextrose) 100 mls @ 100 mls/hr IVPB Q12H [facility] Last Admin: 09/01/17 06:00 Dose: 100 mls/hr Azithromycin 500 mg/ Sodium (Chloride) 250 mls @ 167 mls/hr IVPB Q24H [facility] Last Admin: 09/01/17 13:45 Dose: 167 mls/hr Insulin Aspart (Novolog) 0 unit SC ACHS [facility] PRN Reason: Protocol Last Admin: 09/01/17 12:16 Dose: 4 unit Metformin HCl (Glucophage) 500 mg PO DAILY [facility] Last Admin: 09/01/17 09:57 Dose: 500 mg Prednisone (Prednisone Tab) 20 mg PO DAILY [facility] Vitamin B Complex/Vitamin C (Berocca) 1 tab PO DAILY [facility] Last Admin: 09/01/17 09:56 Dose: 1 tab - Labs Labs: 08/31/17 07:18 09/01/17 06:48 - Head Exam Head Exam: ATRAUMATIC, NORMOCEPHALIC - Eye Exam Eye Exam: Normal appearance - ENT Exam ENT Exam: Mucous Membranes Moist - Neck Exam Neck Exam: Normal Inspection - Respiratory Exam Respiratory Exam: Clear to Ausculation Bilateral - Cardiovascular Exam Cardiovascular Exam: REGULAR RHYTHM - GI/Abdominal Exam GI & Abdominal Exam: Soft, Normal Bowel Sounds - Extremities Exam Extremities Exam: Full ROM, Normal Inspection - Neurological Exam Neurological Exam: Alert, Oriented x3 Assessment and Plan (1) Cough Assessment & Plan: We will start tapering IV steroids Continue antibiotics and nebulizer treatment Status: Acute
--- NOTE | 2017-09-01 15:49 | CP.PCM.PN ---
Subjective - Date & Time of Evaluation Date of Evaluation: 09/01/17 Time of Evaluation: 07:00 - Subjective Subjective: less cough and congestion no fever Objective - Vital Signs/Intake and Output Vital Signs (last 24 hours): Temp Pulse Resp BP Pulse Ox 98.8 F 109 H 20 126/72 95 09/01/17 06:00 09/01/17 00:00 09/01/17 00:00 09/01/17 00:00 09/01/17 06:00 Intake and Output: 09/01/17 09/01/17 06:59 18:59 Intake Total 2120 Balance 2120 - Medications Medications: Current Medications Acetaminophen (Tylenol 325mg Tab) 650 mg PO Q6 PRN PRN Reason: Pain, moderate (4-7) Last Admin: 08/30/17 02:31 Dose: 650 mg Albuterol/Ipratropium (Duoneb 3 Mg/0.5 Mg (3 Ml) Ud) 3 ml INH RQ8 PRN PRN Reason: Shortness of Breath Last Admin: 08/29/17 07:45 Dose: 3 ml Docusate Sodium (Colace) 100 mg PO BID [facility] Last Admin: 09/01/17 09:56 Dose: 100 mg Enoxaparin Sodium (Lovenox) 40 mg SC DAILY [facility] Last Admin: 09/01/17 09:57 Dose: 40 mg Ceftriaxone Sodium 1 gm/ (Dextrose) 100 mls @ 100 mls/hr IVPB Q12H [facility] Last Admin: 09/01/17 06:00 Dose: 100 mls/hr Azithromycin 500 mg/ Sodium (Chloride) 250 mls @ 167 mls/hr IVPB Q24H [facility] Last Admin: 09/01/17 13:45 Dose: 167 mls/hr Insulin Aspart (Novolog) 0 unit SC ACHS [facility] PRN Reason: Protocol Last Admin: 09/01/17 12:16 Dose: 4 unit Metformin HCl (Glucophage) 500 mg PO DAILY [facility] Last Admin: 09/01/17 09:57 Dose: 500 mg Prednisone (Prednisone Tab) 20 mg PO DAILY [facility] Vitamin B Complex/Vitamin C (Berocca) 1 tab PO DAILY [facility] Last Admin: 09/01/17 09:56 Dose: 1 tab - Labs Labs: 08/31/17 07:18 09/01/17 06:48 - Constitutional Appears: Non-toxic, Chronically Ill - Head Exam Head Exam: NORMOCEPHALIC - Eye Exam Eye Exam: PERRL - ENT Exam ENT Exam: Mucous Membranes Dry - Neck Exam Neck Exam: absent: Lymphadenopathy - Respiratory Exam Respiratory Exam: Decreased Breath Sounds - Cardiovascular Exam Cardiovascular Exam: REGULAR RHYTHM - GI/Abdominal Exam GI & Abdominal Exam: Distended - Rectal Exam Rectal Exam: Deferred - Exam Exam: NORMAL INSPECTION - Extremities Exam Extremities Exam: absent: Pedal Edema - Back Exam Back Exam: absent: CVA tenderness (L), CVA tenderness (R) Assessment and Plan (1) Cough Status: Acute (2) Dehydration Status: Acute (3) Upper respiratory infection Status: Acute - Assessment and Plan (Free Text) Plan: cont vi rx / steroids
[2017-09-02] MEDS: (Novolog) Insulin Aspart, Recombinant 100 u/ml 10 ml vial SC SCH ×4 (08:34→21:31)
[2017-09-02] MEDS: Vitamin B Complex/Vitamin C Tab PO SCH (10:42)
[2017-09-02] MEDS: Enoxaparin 40 mg Syringe SC SCH (10:43)
--- NOTE | 2017-09-02 13:54 | CT ---
PROCEDURE: CT HEAD WITHOUT CONTRAST. HISTORY: AMS COMPARISON: None available. TECHNIQUE: Axial computed tomography images were obtained through the head/brain without intravenous contrast. Radiation dose: Total exam DLP = 743.61 mGy-cm. This CT exam was performed using one or more of the following dose reduction techniques: Automated exposure control, adjustment of the mA and/or kV according to patient size, and/or use of iterative reconstruction technique. FINDINGS: HEMORRHAGE: No intracranial hemorrhage. BRAIN: Diffuse expansion of the ventriculosulcal and cisternal spaces is appreciated compatible with diffuse cerebral atrophy. There is no mass effect or suspicious extra-axial fluid collection appreciated. Midline brain and appears diffusely unremarkable. VENTRICLES: Unremarkable. No hydrocephalus. CALVARIUM: Unremarkable. PARANASAL SINUSES: Unremarkable as visualized. No significant inflammatory changes. MASTOID AIR CELLS: Unremarkable as visualized. No inflammatory changes. OTHER FINDINGS: None. IMPRESSION: Limited age-related neuro degenerative changes appreciate without acute findings by standard CT criteria. Follow-up CT or MRI are available if clinically warranted.
[2017-09-02] MEDS: Azithromycin 500 MG in Sodium Chloride 0.9% 250 ML IVPB SCH (14:15)
--- NOTE | 2017-09-02 15:09 | CP.PCM.PN ---
Subjective - Date & Time of Evaluation Date of Evaluation: 09/02/17 Time of Evaluation: 10:00 - Subjective Subjective: patient seen and examined. Appears confused Cough is much better Afebrile Objective - Vital Signs/Intake and Output Vital Signs (last 24 hours): Temp Pulse Resp BP Pulse Ox 98 F 110 H 20 170/89 H 98 09/02/17 07:54 09/02/17 07:54 09/02/17 07:54 09/02/17 07:54 09/02/17 07:54 Intake and Output: 09/02/17 09/02/17 06:59 18:59 Intake Total 740 Output Total 1 Balance 739 - Medications Medications: Current Medications Acetaminophen (Tylenol 325mg Tab) 650 mg PO Q6 PRN PRN Reason: Pain, moderate (4-7) Last Admin: 08/30/17 02:31 Dose: 650 mg Docusate Sodium (Colace) 100 mg PO BID [facility] Last Admin: 09/02/17 10:42 Dose: 100 mg Enoxaparin Sodium (Lovenox) 40 mg SC DAILY [facility] Last Admin: 09/02/17 10:43 Dose: 40 mg Ceftriaxone Sodium 1 gm/ (Dextrose) 100 mls @ 100 mls/hr IVPB Q12H [facility] Last Admin: 09/02/17 06:01 Dose: 100 mls/hr Azithromycin 500 mg/ Sodium (Chloride) 250 mls @ 167 mls/hr IVPB Q24H [facility] Last Admin: 09/02/17 14:15 Dose: 167 mls/hr Insulin Aspart (Novolog) 0 unit SC ACHS [facility] PRN Reason: Protocol Last Admin: 09/02/17 12:30 Dose: 3 unit Metformin HCl (Glucophage) 500 mg PO DAILY [facility] Last Admin: 09/02/17 10:42 Dose: 500 mg Prednisone (Prednisone Tab) 10 mg PO DAILY [facility] Last Admin: 09/02/17 13:18 Dose: 10 mg Vitamin B Complex/Vitamin C (Berocca) 1 tab PO DAILY [facility] Last Admin: 09/02/17 10:42 Dose: 1 tab - Labs Labs: 08/31/17 07:18 09/01/17 06:48 - Constitutional Appears: No Acute Distress - Head Exam Head Exam: ATRAUMATIC, NORMOCEPHALIC - Eye Exam Eye Exam: Normal appearance - ENT Exam ENT Exam: Mucous Membranes Moist - Neck Exam Neck Exam: Normal Inspection - Respiratory Exam Respiratory Exam: Clear to Ausculation Bilateral - Cardiovascular Exam Cardiovascular Exam: REGULAR RHYTHM - GI/Abdominal Exam GI & Abdominal Exam: Soft, Normal Bowel Sounds - Neurological Exam Neurological Exam: Altered Assessment and Plan (1) Cough Assessment & Plan: Confusion most likely secondary to steroids Reduce prednisone to 10 mg Continue antibiotics Continue nebulizer treatment Status: Acute
[2017-09-02 15:55] VITALS: O2SAT 97
--- NOTE | 2017-09-02 19:02 | CP.PCM.PN ---
Subjective - Date & Time of Evaluation Date of Evaluation: 09/02/17 Time of Evaluation: 08:00 - Subjective Subjective: improved afeb iv rx in progress Objective - Vital Signs/Intake and Output Vital Signs (last 24 hours): Temp Pulse Resp BP Pulse Ox 98.6 F 118 H 20 153/92 H 97 09/02/17 15:00 09/02/17 15:00 09/02/17 15:00 09/02/17 15:00 09/02/17 15:00 - Medications Medications: Current Medications Acetaminophen (Tylenol 325mg Tab) 650 mg PO Q6 PRN PRN Reason: Pain, moderate (4-7) Last Admin: 08/30/17 02:31 Dose: 650 mg Docusate Sodium (Colace) 100 mg PO BID [facility] Last Admin: 09/02/17 18:09 Dose: 100 mg Enoxaparin Sodium (Lovenox) 40 mg SC DAILY [facility] Last Admin: 09/02/17 10:43 Dose: 40 mg Ceftriaxone Sodium 1 gm/ (Dextrose) 100 mls @ 100 mls/hr IVPB Q12H [facility] Last Admin: 09/02/17 06:01 Dose: 100 mls/hr Azithromycin 500 mg/ Sodium (Chloride) 250 mls @ 167 mls/hr IVPB Q24H [facility] Last Admin: 09/02/17 14:15 Dose: 167 mls/hr Insulin Aspart (Novolog) 0 unit SC ACHS [facility] PRN Reason: Protocol Last Admin: 09/02/17 16:45 Dose: 4 unit Metformin HCl (Glucophage) 500 mg PO DAILY [facility] Last Admin: 09/02/17 10:42 Dose: 500 mg Prednisone (Prednisone Tab) 10 mg PO DAILY [facility] Last Admin: 09/02/17 13:18 Dose: 10 mg Vitamin B Complex/Vitamin C (Berocca) 1 tab PO DAILY [facility] Last Admin: 09/02/17 10:42 Dose: 1 tab - Labs Labs: 08/31/17 07:18 09/01/17 06:48 - Constitutional Appears: Non-toxic, Chronically Ill - Head Exam Head Exam: NORMOCEPHALIC - Eye Exam Eye Exam: PERRL - ENT Exam ENT Exam: Mucous Membranes Dry - Neck Exam Neck Exam: absent: Lymphadenopathy - Respiratory Exam Respiratory Exam: Decreased Breath Sounds, Clear to Ausculation Bilateral - Cardiovascular Exam Cardiovascular Exam: REGULAR RHYTHM - GI/Abdominal Exam GI & Abdominal Exam: Distended Assessment and Plan (1) Cough Status: Acute (2) Dehydration Status: Acute (3) Upper respiratory infection Status: Acute
[2017-09-02 19:14] LABS: BASO % 0.2 % (0.0-2.0); HEMATOCRIT 31.7 % (34.0-47.0); LYMPH # 1.5 K/uL (1.0-4.3); LYMPH % 9.3 % (20.0-40.0); MEAN CELL VOLUME 86.3 fL (81.0-99.0); MEAN CORPUSCULAR HEMOGLOBIN 28.2 pg (27.0-31.0); MEAN CORPUSCULAR HGB CONC 32.7 g/dL (33.0-37.0); MEAN PLATELET VOLUME 7.7 fL (7.2-11.7); MONO # 0.9 K/uL (0.0-0.8); MONO % 5.7 % (0.0-10.0); RED CELL DISTRIBUTION WIDTH 13.1 % (11.5-14.5); WHITE BLOOD COUNT 15.9 K/uL (4.8-10.8)
[2017-09-02 19:17] LABS: PLATELET COUNT 675 K/uL (130-400)
[2017-09-02 19:27] LABS: CHLORIDE 96 mmol/L (98-107); SODIUM 131 mmol/L (132-148)
[2017-09-02 19:30] LABS: BLOOD UREA NITROGEN 12 mg/dL (7-17); CARBON DIOXIDE 26 mmol/L (22-30); GFR AFRICAN-AMERICAN > 60
[2017-09-02 19:31] LABS: CALCIUM 7.8 mg/dl (8.6-10.4); GLUCOSE,RANDOM 276 mg/dL (65-105)
[2017-09-02 19:45] LABS: MYELOCYTE 1 % (0-0); NEUTROPHIL 83 % (50-75); TOTAL CELLS COUNTED 100
[2017-09-02 19:46] LABS: LARGE PLATELETS PRESENT
[2017-09-03] MEDS: (Novolog) Insulin Aspart, Recombinant 100 u/ml 10 ml vial SC SCH ×2 (08:03→12:29)
[2017-09-03 08:49] VITALS: PULSE 104; TEMP 97.9
[2017-09-03] MEDS: Vitamin B Complex/Vitamin C Tab PO SCH (10:44)
[2017-09-03] MEDS: Enoxaparin 40 mg Syringe SC SCH (10:44)
[2017-09-03] MEDS ORDERED: Pneumococcal 23-Valent Vaccine IM ONE (12:31)
[2017-09-03] MEDS ORDERED: Influenza Vaccine 60 mcg/0.5 mL SYR (4YR UP) IM ONE (12:31)
[2017-09-03 12:39] VITALS: BP 137/75
--- NOTE | 2017-09-03 14:16 | CP.PCM.PN ---
Subjective - Date & Time of Evaluation Date of Evaluation: 09/03/17 Time of Evaluation: 11:55 - Subjective Subjective: patient seen and examined. Less cough Episode off cough last night No more confusion Objective - Vital Signs/Intake and Output Vital Signs (last 24 hours): Temp Pulse Resp BP Pulse Ox 97.9 F 104 H 20 137/75 97 09/03/17 08:48 09/03/17 12:35 09/03/17 08:48 09/03/17 12:35 09/03/17 12:35 Intake and Output: 09/03/17 09/03/17 06:59 18:59 Intake Total 220 Balance 220 - Medications Medications: Current Medications Acetaminophen (Tylenol 325mg Tab) 650 mg PO Q6 PRN PRN Reason: Pain, moderate (4-7) Last Admin: 08/30/17 02:31 Dose: 650 mg Docusate Sodium (Colace) 100 mg PO BID [facility] Last Admin: 09/03/17 10:44 Dose: 100 mg Enoxaparin Sodium (Lovenox) 40 mg SC DAILY [facility] Last Admin: 09/03/17 10:44 Dose: 40 mg Ceftriaxone Sodium 1 gm/ (Dextrose) 100 mls @ 100 mls/hr IVPB Q12H [facility] Last Admin: 09/03/17 06:30 Dose: 100 mls/hr Azithromycin 500 mg/ Sodium (Chloride) 250 mls @ 167 mls/hr IVPB Q24H [facility] Last Admin: 09/02/17 14:15 Dose: 167 mls/hr Insulin Aspart (Novolog) 0 unit SC ACHS [facility] PRN Reason: Protocol Last Admin: 09/03/17 12:29 Dose: 4 unit Metformin HCl (Glucophage) 500 mg PO DAILY [facility] Last Admin: 09/03/17 10:44 Dose: 500 mg Prednisone (Prednisone Tab) 10 mg PO DAILY [facility] Last Admin: 09/03/17 10:44 Dose: 10 mg Vitamin B Complex/Vitamin C (Berocca) 1 tab PO DAILY [facility] Last Admin: 09/03/17 10:44 Dose: 1 tab - Labs Labs: 09/02/17 19:11 09/02/17 19:11 - Constitutional Appears: No Acute Distress - Head Exam Head Exam: ATRAUMATIC, NORMOCEPHALIC - Eye Exam Eye Exam: Normal appearance - ENT Exam ENT Exam: Mucous Membranes Moist - Neck Exam Neck Exam: Normal Inspection - Respiratory Exam Respiratory Exam: Clear to Ausculation Bilateral - Cardiovascular Exam Cardiovascular Exam: REGULAR RHYTHM - GI/Abdominal Exam GI & Abdominal Exam: Soft, Normal Bowel Sounds - Extremities Exam Extremities Exam: Full ROM, Normal Inspection Assessment and Plan (1) Cough Assessment & Plan: Taper steroids Antibiotics per ID Stable from pulmonary standpoint Status: Acute
--- NOTE | 2017-09-04 01:08 | DS ---
SUBJECTIVE: A 72-year-old female was brought in with a fever, sepsis and dehydration. She was found to have a right lower lobe pneumonia. She was admitted to regular floor. IV fluids were given, IV antibiotics were given. White count was elevated to 20,000. IV Zithromax and Rocephin were given with improvement. CT of the chest was unremarkable. Physical therapy was given, she has improved now to be discharged as an outpatient. She was seen by Pulmonary consult with Dr. Michaud. Infectious Disease consult with Dr. Rivera and Nephrology consultation with Dr. Alfaro because of hyponatremia of 126. The patient is being discharged. We will have a physical therapy as an outpatient. Prescription for rolling walker and commode has been given. Physical therapy prescription has been give. Accu-Chek machine has been given. She will continue with a metformin as an outpatient along with multivitamin. Prescription for Z-Gerard, prednisone 10 mg one a day for 5 days and Phenergan DM along with Symbicort 80/4.5 has been prescribed. Care plan explained to the patient's family. FINAL DIAGNOSES: Pneumonia, sepsis, dehydration, diabetes mellitus, electrolyte imbalance. Bryson Shane MD
--- NOTE | 2017-09-04 08:38 | CARD ---
APPROVED REPORT EKG Measurement Heart [id number] <Conclusion> Sinus tachycardia Possible Left atrial enlargement Nonspecific ST abnormality Abnormal ECG
== END 2017-09-03 14:23 | disposition home or self-care (01) | DRG 871 ==
LOC: C.ER 17:22 → C.3T 19:24
PROVIDERS: ADMIT Internal Medicine Cardiovascular Disease; ATTEND Internal Medicine Cardiovascular Disease
DX: A41.9 Sepsis, unspecified organism (principal); J18.9 Pneumonia, unspecified organism; E87.1 Hypo-osmolality and hyponatremia; D64.9 Anemia, unspecified; E86.0 Dehydration; R65.20 Severe sepsis without septic shock; I10 Essential (primary) hypertension; E78.5 Hyperlipidemia, unspecified; R41.0 Disorientation, unspecified; T38.0X5A Adverse effect of glucocorticoids and synthetic analogues, initial encounter